=== PATIENT | male | born 1935 | race Caucasian/White ===

== ENCOUNTER 2020-12-04 21:14 | Inpatient (IN) | payer BC, OTHER ==
[~2020-12-04] VITALS: Ht 167.6 cm; Wt 71.6 kg
--- NOTE | 2020-12-05 00:52 | NUR ---
CXR COMPLETED. PT'S FAMILY MEMBER AT BEDSIDE.
[2020-12-05] MEDS ORDERED: normal saline 1000ml 1,000 ML IV ONE (01:00)
[2020-12-05] MEDS ORDERED: metoclopramide 5 mg/ml inj IV ONE (01:00)
[2020-12-05] MEDS: diatr meglu/diatrizoate 30ml oral sol.-(3 dose) bottle PO SCH ×4 (01:00→21:00)
[2020-12-05 01:27] LABS: BASOPHILS % (AUTO) 0.1 % (0-1); EOSINOPHILS % (AUTO) 0.3 % (0-6); HEMATOCRIT 40.4 % (42.0-52.0); HEMOGLOBIN 13.7 g/dl (14.0-17.9); LYMPHOCYTES # (AUTO) 0.5 X10'3 (1.1-4.8); LYMPHOCYTES % (AUTO) 8.3 % (21-51); MEAN CORPUSCULAR HEMOGLOBIN 30.5 PG (27.0-31.0); MEAN CORPUSCULAR HGB CONC 33.8 g/dL (33.0-36.5); MEAN CORPUSCULAR VOLUME 90.1 FL (78-98); MEAN PLATELET VOLUME 8.4 FL (7.4-10.4); MONOCYTES # (AUTO) 0.8 X10'3 (0-0.9); MONOCYTES % (AUTO) 12.6 % (2-12); NEUTROPHILS # (AUTO) 4.9 X10'3 (1.8-7.7); NEUTROPHILS % (AUTO) 78.7 % (42-75); PLATELET COUNT 329 X10'3 (140-440); RED BLOOD COUNT 4.48 X10'6 (4.70-6.10); RED CELL DISTRIBUTION WIDTH 14.3 % (11.5-14.5); WHITE BLOOD COUNT 6.3 X10'3 (4.5-11.0)
[2020-12-05 01:40] LABS: ALANINE AMINOTRANSFERASE 19 U/L (12-78); ALBUMIN 3.2 G/DL (3.4-5.0); ALBUMIN/GLOBULIN RATIO 0.8 (1.1-1.5); ALKALINE PHOSPHATASE 101 IU/L (46-116); ANION GAP 16 (8-16); ASPARTATE AMINO TRANSFERASE 6 U/L (10-37); BILIRUBIN,TOTAL 0.5 MG/DL (0.1-1.0); BLOOD UREA NITROGEN 148 MG/DL (7-18); CALCIUM 8.7 MG/DL (8.5-10.1); CHLORIDE 102 MMOL/L (99-107); CREATININE 6.43 MG/DL (0.60-1.10); GLUCOSE 126 MG/DL (70-104); LIPASE 112 U/L (73-393); MAGNESIUM 2.4 MG/DL (1.5-2.4); SODIUM 138 MMOL/L (135-145); TOTAL PROTEIN 7.4 G/DL (6.4-8.2); eGFR 8 ML/MIN
[2020-12-05 01:45] LABS: D-DIMER 10.31 MG/L FEU (0-0.50); PARTIAL THROMBOPLASTIN TIME 47 SECONDS (22-32)
--- NOTE | 2020-12-05 03:04 | NUR ---
2nd dose of gastrografin given. pt is polite and cooperative and daughter remains at bedside. vss.
[2020-12-05] MEDS ORDERED: normal saline 1000ML IV soln IVB ONE (03:05)
[2020-12-05] MEDS ORDERED: NO HOME MEDS (04:23)
--- NOTE | 2020-12-05 04:31 | NUR ---
Dr. Grider talking with Pt and his daughter about result of CT scan. Daughter reports pt has been havinig generalized weakness with some sob over the past week and Pt has been having a "gag or hiccup" over this time also. Dr. Tafoya at bedside for admission.
[2020-12-05] MEDS ORDERED: acetaminophen 325mg tablet PO PRN (04:55)
[2020-12-05] MEDS ORDERED: potassium Cl 20 mEq SR tablet PO PRN ×2 (04:55)
[2020-12-05] MEDS ORDERED: ondansetron/PF 4mg/2ml inj IV PRN (04:55)
[2020-12-05] MEDS ORDERED: magnesium 2GM in 50ml NS 50 ML IV PRN (04:55)
[2020-12-05] MEDS ORDERED: magnesium 4gm in 100ml NS 100 ML IV PRN (04:55)
[2020-12-05] MEDS ORDERED: potassium Cl 40MEQ/1/2NS 520ml 520 ML IV PRN ×2 (04:55)
[2020-12-05] MEDS ORDERED: morphine 2 MG/ML inj. syringe IV PRN ×2 (04:55)
--- NOTE | 2020-12-05 04:55 | NUR ---
daughter , manuel guillaume, cell: [phone]
--- NOTE | 2020-12-05 06:33 | NUR ---
Page sent to Dr Tafoya for HR [id number]
[2020-12-05] MEDS ORDERED: diltiazem 5mg/ml 5ml inj. IV ONE (06:35)
[2020-12-05] MEDS ORDERED: diltiazem-NS 100mg/100ml 100 ML IV SCH (06:35)
[2020-12-05] MEDS: normal saline 1000ml 1,000 ML IV SCH ×3 (06:53→22:52)
--- NOTE | 2020-12-05 07:30 | NUR ---
PAT HAD LIQUID BM VIA BEDSIDE. ABLE TO TRANSFER WITHOUT ASSISTANCE. HYGIENE PROVIDED, PAT REPOSITIONED FOR COMFORT, LINEN CHANGE PROVIDED.
[2020-12-05] MEDS: docusate sod 100mg capsule PO SCH ×2 (08:00→20:00)
[2020-12-05] MEDS: K and/or MAG REPLACEMENT MC SCH ×2 (08:00→20:00)
[2020-12-05 09:30] VITALS: BP 158/88
[2020-12-05] MEDS: heparin, porcine 5000 units/ml vial SQ SCH ×3 (10:07→23:58)
[2020-12-05 11:00] VITALS: BP 160/90
[2020-12-05] MEDS ORDERED: LIDOcaine 2% 10ml TOPICAL JELLY (Urojet) TP ONE (12:15)
[2020-12-05 15:00] VITALS: BP 134/62
[2020-12-05 18:00] VITALS: BP 143/58
[2020-12-05 22:00] VITALS: BP 118/62
[2020-12-06] MEDS: normal saline 1000ml 1,000 ML IV SCH ×2 (05:32→12:42)
[2020-12-06 06:00] VITALS: BP 138/66
--- NOTE | 2020-12-06 06:10 | NUR ---
Patient in room PCU 3023. I have received report from Meg SINGH and had the opportunity to ask questions and assume patient care.
--- NOTE | 2020-12-06 06:38 | NUR ---
Problems reprioritized. Patient report given, questions answered & plan of care reviewed with FRANCISCO Nunes.
[2020-12-06 07:20] LABS: BASOPHILS % (AUTO) 0.1 % (0-1); EOSINOPHILS % (AUTO) 0.4 % (0-6); HEMATOCRIT 41.7 % (42.0-52.0); HEMOGLOBIN 13.9 g/dl (14.0-17.9); LYMPHOCYTES # (AUTO) 0.7 X10'3 (1.1-4.8); LYMPHOCYTES % (AUTO) 5.5 % (21-51); MEAN CORPUSCULAR HEMOGLOBIN 30.6 PG (27.0-31.0); MEAN CORPUSCULAR HGB CONC 33.3 g/dL (33.0-36.5); MEAN CORPUSCULAR VOLUME 91.7 FL (78-98); MEAN PLATELET VOLUME 8.6 FL (7.4-10.4); MONOCYTES # (AUTO) 0.7 X10'3 (0-0.9); MONOCYTES % (AUTO) 6.2 % (2-12); NEUTROPHILS # (AUTO) 10.5 X10'3 (1.8-7.7); NEUTROPHILS % (AUTO) 87.8 % (42-75); PLATELET COUNT 349 X10'3 (140-440); RED BLOOD COUNT 4.54 X10'6 (4.70-6.10); RED CELL DISTRIBUTION WIDTH 14.5 % (11.5-14.5)
[2020-12-06] MEDS: diatr meglu/diatrizoate 30ml oral sol.-(3 dose) bottle PO SCH ×2 (07:34→21:01)
[2020-12-06 07:40] LABS: ALANINE AMINOTRANSFERASE 15 U/L (12-78); ALBUMIN 2.9 G/DL (3.4-5.0); ALBUMIN/GLOBULIN RATIO 0.8 (1.1-1.5); ALKALINE PHOSPHATASE 96 IU/L (46-116); ANION GAP 17 (8-16); ASPARTATE AMINO TRANSFERASE 6 U/L (10-37); BILIRUBIN,TOTAL 0.4 MG/DL (0.1-1.0); BLOOD UREA NITROGEN 147 MG/DL (7-18); BUN/CREATININE RATIO 29.6 (5.4-32.0); CALCIUM 8.1 MG/DL (8.5-10.1); CHLORIDE 110 MMOL/L (99-107); CREATININE 4.96 MG/DL (0.60-1.10); GLUCOSE 90 MG/DL (70-104); MAGNESIUM 2.1 MG/DL (1.5-2.4); POTASSIUM 3.4 MMOL/L (3.5-5.1); SODIUM 144 MMOL/L (135-145); TOTAL CARBON DIOXIDE 17.1 MMOL/L (24-32); TOTAL PROTEIN 6.7 G/DL (6.4-8.2); eGFR 11 ML/MIN
[2020-12-06] MEDS: docusate sod 100mg capsule PO SCH ×2 (08:00→20:48)
[2020-12-06] MEDS: heparin, porcine 5000 units/ml vial SQ SCH (08:00)
[2020-12-06] MEDS: K and/or MAG REPLACEMENT MC SCH ×2 (08:00→20:00)
[2020-12-06 08:08] LABS: CREATINE KINASE 38 U/L (39-308)
[2020-12-06 11:00] VITALS: BP 133/74
--- NOTE | 2020-12-06 11:11 | NUR ---
PAGER ID: [phone] MESSAGE: RE: Deshawn Holden. Room: 3023A. Pt does not have an order diet. Can I put diet order in? Des [facility] #[id number] -Dr. Vargas paged concerning Pt's diet
--- NOTE | 2020-12-06 13:00 | NUR ---
Spoke with Dr. Rodriguez concerning Pt's morning potassium level of 3.4. He recommends giving a one time dose of 40meq potassium IV to replace potassium.
[2020-12-06 15:00] VITALS: BP 131/70
[2020-12-06] MEDS ORDERED: diltiazem 5mg/ml 5ml inj. IV ONE (15:10)
[2020-12-06 17:47] LABS: CLARITY,URINE CLEAR (Clear); COLOR,URINE YELLOW (Yellow); GLUCOSE, URINE NEGATIVE (Neg); KETONES,URINE TRACE mg/dl (Neg); LEUKOCYTE ESTERASE ,URINE TRACE (Neg); NITRITES, URINE NEGATIVE (Neg); OCCULT BLOOD,URINE LARGE (Neg); PH,URINE 5.5 (4.8-8.0); PROTEIN,URINE TRACE mg/dl (Neg); UROBILINOGEN,URINE 0.2 E.U/dL (0.2-1.0)
[2020-12-06 17:52] LABS: UA COLLECTION TYPE FOLEY CATH
[2020-12-06 17:53] LABS: BACTERIA,URINE NONE SEEN /HPF (Neg); MUCUS STRANDS FEW /LPF (Neg); SQUAMOUS EPITHELIAL CELL,UR NONE SEEN /LPF (FEW); WBC,URINE 0-4 /HPF (0-4)
[2020-12-06 18:00] VITALS: BP 109/70
--- NOTE | 2020-12-06 18:22 | NUR ---
Patient in room PCU 3023. I have received report from FIDENCIO SINGH and had the opportunity to ask questions and assume patient care.
--- NOTE | 2020-12-06 18:40 | NUR ---
Problems reprioritized. Patient report given, questions answered & plan of care reviewed with Martha SINGH.
--- NOTE | 2020-12-06 18:42 | NUR ---
PAGER ID: [phone] MESSAGE: Re: Deshawn Holden. Room: 3023A. Pt's heart rate remains 120's Afib. BP: 120/80. Can we do another dose of Cardizem? -Des [facility] #[id number] -Dr. Vargas paged concerning Pt's heart rate
--- NOTE | 2020-12-06 20:20 | NUR ---
moved patient to 23b bed-patient confused, bed alarm not working. patient up to toilet, had bm, settled back into B bed. Bed alarm on. Hardik SINGH
[2020-12-06] MEDS: enoxaparin 40mg/0.4ml syringe SQ SCH (20:46)
[2020-12-06] MEDS: enoxaparin 30mg/0.3ml syringe SUBCUT SCH (20:47)
[2020-12-06] MEDS ORDERED: enoxaparin 100mg/ml syringe SUBCUT SCH (21:00)
[2020-12-06 22:00] VITALS: BP 149/79
[2020-12-07 02:00] VITALS: BP 122/60
[2020-12-07] MEDS: normal saline 1000ml 1,000 ML IV SCH ×4 (03:04→23:45)
[2020-12-07 03:43] VITALS: BP 122/60
[2020-12-07 06:00] VITALS: BP 140/73
--- NOTE | 2020-12-07 06:05 | NUR ---
Patient in room PCU 3023. I have received report from Martha SINGH and had the opportunity to ask questions and assume patient care.
[2020-12-07 06:55] LABS: BASOPHILS % (AUTO) 0 % (0-1); EOSINOPHILS # (AUTO) 0.1 X10'3 (0-0.9); EOSINOPHILS % (AUTO) 0.9 % (0-6); HEMATOCRIT 36.6 % (42.0-52.0); HEMOGLOBIN 12.2 g/dl (14.0-17.9); LYMPHOCYTES # (AUTO) 0.7 X10'3 (1.1-4.8); LYMPHOCYTES % (AUTO) 5.4 % (21-51); MEAN CORPUSCULAR HEMOGLOBIN 30.8 PG (27.0-31.0); MEAN CORPUSCULAR HGB CONC 33.2 g/dL (33.0-36.5); MEAN CORPUSCULAR VOLUME 92.7 FL (78-98); MEAN PLATELET VOLUME 8.7 FL (7.4-10.4); MONOCYTES # (AUTO) 0.9 X10'3 (0-0.9); NEUTROPHILS # (AUTO) 11.3 X10'3 (1.8-7.7); NEUTROPHILS % (AUTO) 86.7 % (42-75); PLATELET COUNT 285 X10'3 (140-440); RED BLOOD COUNT 3.95 X10'6 (4.70-6.10); RED CELL DISTRIBUTION WIDTH 14.6 % (11.5-14.5)
--- NOTE | 2020-12-07 07:00 | NUR ---
Problems reprioritized. Patient report given, questions answered & plan of care reviewed with FIDENCIO SINGH.
[2020-12-07 07:14] LABS: ALANINE AMINOTRANSFERASE 13 U/L (12-78); ALBUMIN 2.5 G/DL (3.4-5.0); ALBUMIN/GLOBULIN RATIO 0.7 (1.1-1.5); ALKALINE PHOSPHATASE 88 IU/L (46-116); ASPARTATE AMINO TRANSFERASE 9 U/L (10-37); BILIRUBIN,TOTAL 0.3 MG/DL (0.1-1.0); BLOOD UREA NITROGEN 131 MG/DL (7-18); BUN/CREATININE RATIO 33.7 (5.4-32.0); CALCIUM 7.7 MG/DL (8.5-10.1); CREATINE KINASE 34 U/L (39-308); CREATININE 3.89 MG/DL (0.60-1.10); GLUCOSE 84 MG/DL (70-104); SODIUM 147 MMOL/L (135-145); TOTAL CARBON DIOXIDE 15.9 MMOL/L (24-32); TOTAL PROTEIN 5.9 G/DL (6.4-8.2); eGFR 15 ML/MIN
[2020-12-07 07:27] LABS: ANION GAP 16 (8-16); CHLORIDE 115 MMOL/L (99-107)
[2020-12-07] MEDS: K and/or MAG REPLACEMENT MC SCH ×2 (08:00→20:00)
[2020-12-07] MEDS: docusate sod 100mg capsule PO SCH ×2 (08:00→23:13)
[2020-12-07 09:39] LABS: TOTAL PROTEIN,URINE RANDOM 38.5 MG/DL
[2020-12-07 11:00] VITALS: BP 108/75
--- NOTE | 2020-12-07 15:50 | NUR ---
PAGER ID: [phone] MESSAGE: Re: Deshawn Holden. Room: [facility]3B. 12/06 UA is growing gram positive cocci. -Des [facility] #[id number] -Dr. Vargas paged concerning Pt's UA
--- NOTE | 2020-12-07 16:35 | NUR ---
Spoke with Dr. Vargas and Dr. Ogden concerning Pt's UA growing gram positive cocci. Dr. Vargas wanted to order a one time renal dose of Rocephin IV. Spoke to Dr. Ogden who recommended 1gm of Rocephin IV daily for 5 days.
[2020-12-07 18:00] VITALS: BP 127/84
--- NOTE | 2020-12-07 18:45 | NUR ---
Problems reprioritized. Patient report given, questions answered & plan of care reviewed with Blessing SINGH.
--- NOTE | 2020-12-07 18:58 | NUR ---
Patient in room PCU 3023. I have received report from Des SINGH and had the opportunity to ask questions and assume patient care.
[2020-12-07] MEDS: CefTRIAXone/D5W-Rocephin 1gm 50 ML IV SCH (21:00)
[2020-12-07 23:00] VITALS: BP 157/79
[2020-12-07] MEDS: enoxaparin 30mg/0.3ml syringe SUBCUT SCH (23:14)
[2020-12-07] MEDS: enoxaparin 40mg/0.4ml syringe SQ SCH (23:15)
[2020-12-08 03:00] VITALS: BP 142/74
[2020-12-08 06:50] LABS: BASOPHILS % (AUTO) 0.1 % (0-1); EOSINOPHILS # (AUTO) 0.2 X10'3 (0-0.9); EOSINOPHILS % (AUTO) 1.1 % (0-6); HEMATOCRIT 34.9 % (42.0-52.0); HEMOGLOBIN 11.9 g/dl (14.0-17.9); LYMPHOCYTES # (AUTO) 0.7 X10'3 (1.1-4.8); LYMPHOCYTES % (AUTO) 5.5 % (21-51); MEAN CORPUSCULAR HEMOGLOBIN 31.4 PG (27.0-31.0); MEAN CORPUSCULAR HGB CONC 34.2 g/dL (33.0-36.5); MEAN CORPUSCULAR VOLUME 91.8 FL (78-98); MEAN PLATELET VOLUME 8.5 FL (7.4-10.4); MONOCYTES # (AUTO) 0.9 X10'3 (0-0.9); MONOCYTES % (AUTO) 6.3 % (2-12); NEUTROPHILS # (AUTO) 11.8 X10'3 (1.8-7.7); PLATELET COUNT 270 X10'3 (140-440); RED BLOOD COUNT 3.81 X10'6 (4.70-6.10); RED CELL DISTRIBUTION WIDTH 14.3 % (11.5-14.5); WHITE BLOOD COUNT 13.6 X10'3 (4.5-11.0)
[2020-12-08 06:51] LABS: ALANINE AMINOTRANSFERASE 14 U/L (12-78); ALBUMIN 2.3 G/DL (3.4-5.0); ALBUMIN/GLOBULIN RATIO 0.7 (1.1-1.5); ALKALINE PHOSPHATASE 79 IU/L (46-116); ANION GAP 16 (8-16); ASPARTATE AMINO TRANSFERASE 11 U/L (10-37); BILIRUBIN,TOTAL 0.3 MG/DL (0.1-1.0); BLOOD UREA NITROGEN 107 MG/DL (7-18); BUN/CREATININE RATIO 35.2 (5.4-32.0); CALCIUM 7.8 MG/DL (8.5-10.1); CHLORIDE 117 MMOL/L (99-107); CREATINE KINASE 23 U/L (39-308); CREATININE 3.04 MG/DL (0.60-1.10); GLUCOSE 101 MG/DL (70-104); POTASSIUM 3.5 MMOL/L (3.5-5.1); SODIUM 149 MMOL/L (135-145); TOTAL PROTEIN 5.6 G/DL (6.4-8.2); eGFR 20 ML/MIN
[2020-12-08 07:17] VITALS: BP_SYST 14; BP_SYST 141; BP_DIAS 77
--- NOTE | 2020-12-08 07:36 | NUR ---
Problems reprioritized. Patient report given, questions answered & plan of care reviewed with Pat RN.
[2020-12-08] MEDS: K and/or MAG REPLACEMENT MC SCH ×2 (08:00→20:00)
[2020-12-08] MEDS: docusate sod 100mg capsule PO SCH ×2 (08:00→20:00)
[2020-12-08 11:00] VITALS: BP 152/78
[2020-12-08 14:33] LABS: CREATINE KINASE 25 U/L (39-308)
[2020-12-08 18:00] VITALS: BP 155/72
--- NOTE | 2020-12-08 18:20 | NUR ---
Patient in room PCU 3015. I have received report from Nevaeh RN and had the opportunity to ask questions and assume patient care.
[2020-12-08] MEDS: lactobacillus rhamnosus 10,000 MMU CELLS/CAPSULE PO SCH (20:00)
[2020-12-08] MEDS: CefTRIAXone/D5W-Rocephin 1gm 50 ML IV SCH (20:04)
[2020-12-08] MEDS: normal saline 1000ml 1,000 ML IV SCH (20:05)
[2020-12-08] MEDS: enoxaparin 40mg/0.4ml syringe SQ SCH (20:05)
[2020-12-08] MEDS: enoxaparin 30mg/0.3ml syringe SUBCUT SCH (20:05)
[2020-12-08] MEDS ORDERED: diatr meglu/diatrizoate 30ml oral sol.-(3 dose) bottle PO SCH (21:00)
[2020-12-08] MEDS ORDERED: diatr meglu/diatrizoate 30ml oral sol.-(3 dose) bottle PO ONE (21:00)
[2020-12-09] MEDS: normal saline 1000ml 1,000 ML IV SCH ×3 (00:14→21:06)
[2020-12-09 02:00] VITALS: BP 147/79
[2020-12-09 06:00] VITALS: BP 166/85
--- NOTE | 2020-12-09 06:20 | NUR ---
Problems reprioritized. Patient report given, questions answered & plan of care reviewed with Neal SINGH.
[2020-12-09] MEDS ORDERED: diatr meglu/diatrizoate 30ml oral sol.-(3 dose) bottle PO ONE ×2 (07:00→09:00)
[2020-12-09 07:21] LABS: BASOPHILS % (AUTO) 0.1 % (0-1); EOSINOPHILS # (AUTO) 0.2 X10'3 (0-0.9); EOSINOPHILS % (AUTO) 1.1 % (0-6); HEMATOCRIT 34.5 % (42.0-52.0); HEMOGLOBIN 11.4 g/dl (14.0-17.9); LYMPHOCYTES # (AUTO) 0.8 X10'3 (1.1-4.8); LYMPHOCYTES % (AUTO) 5.5 % (21-51); MEAN CORPUSCULAR HEMOGLOBIN 30.6 PG (27.0-31.0); MEAN CORPUSCULAR VOLUME 92.8 FL (78-98); MEAN PLATELET VOLUME 8.9 FL (7.4-10.4); MONOCYTES # (AUTO) 1.1 X10'3 (0-0.9); MONOCYTES % (AUTO) 7.2 % (2-12); NEUTROPHILS # (AUTO) 12.6 X10'3 (1.8-7.7); NEUTROPHILS % (AUTO) 86.1 % (42-75); PLATELET COUNT 242 X10'3 (140-440); RED BLOOD COUNT 3.72 X10'6 (4.70-6.10); RED CELL DISTRIBUTION WIDTH 14.4 % (11.5-14.5); WHITE BLOOD COUNT 14.7 X10'3 (4.5-11.0)
[2020-12-09 07:32] LABS: ALANINE AMINOTRANSFERASE 14 U/L (12-78); ALBUMIN 2.3 G/DL (3.4-5.0); ALBUMIN/GLOBULIN RATIO 0.7 (1.1-1.5); ALKALINE PHOSPHATASE 90 IU/L (46-116); ANION GAP 13 (8-16); ASPARTATE AMINO TRANSFERASE 11 U/L (10-37); BILIRUBIN,TOTAL 0.3 MG/DL (0.1-1.0); BLOOD UREA NITROGEN 78 MG/DL (7-18); BUN/CREATININE RATIO 28.5 (5.4-32.0); CALCIUM 7.7 MG/DL (8.5-10.1); CHLORIDE 119 MMOL/L (99-107); CREATINE KINASE 22 U/L (39-308); CREATININE 2.74 MG/DL (0.60-1.10); GLUCOSE 114 MG/DL (70-104); MAGNESIUM 1.9 MG/DL (1.5-2.4); POTASSIUM 3.5 MMOL/L (3.5-5.1); SODIUM 148 MMOL/L (135-145); TOTAL CARBON DIOXIDE 15.8 MMOL/L (24-32); TOTAL PROTEIN 5.5 G/DL (6.4-8.2); eGFR 22 ML/MIN
[2020-12-09] MEDS: K and/or MAG REPLACEMENT MC SCH ×2 (08:00→20:00)
[2020-12-09] MEDS: lactobacillus rhamnosus 10,000 MMU CELLS/CAPSULE PO SCH ×2 (08:00→20:00)
[2020-12-09] MEDS: docusate sod 100mg capsule PO SCH ×2 (08:00→20:00)
[2020-12-09 11:00] VITALS: BP 141/80
--- NOTE | 2020-12-09 11:18 | NUR ---
Dr. Vargas paged: Deshawn Russell [id number]: [facility] would like you to call them. [phone] Dr. Patel. Thanks [id number]
[2020-12-09 12:31] LABS: ANTINUCLEAR ANTIBODIES Negative (Negative); COMPLEMENT C3, SERUM 115 mg/dL (82-167); COMPLEMENT C4, SERUM 20 mg/dL (12-38)
--- NOTE | 2020-12-09 13:58 | NUR ---
NG tube placed per order. Xray confirmed proper placement. Suction set to low continuous. Pt gio. well.
[2020-12-09 15:00] VITALS: BP 150/85
[2020-12-09 18:00] VITALS: BP 148/86
[2020-12-09 18:58] LABS: A/G RATIO 0.9 (0.7-1.7); ALBUMIN 2.5 g/dL (2.9-4.4); BETA GLOBULIN 0.7 g/dL (0.7-1.3); GAMMA GLOBULIN 1.1 g/dL (0.4-1.8); GLOBULIN, TOTAL 2.9 g/dL (2.2-3.9); M-SPIKE Not Observed g/dL (Not Observed); PROTEIN, TOTAL, SERUM 5.4 g/dL (6.0-8.5)
--- NOTE | 2020-12-09 19:00 | NUR ---
Problems reprioritized. Patient report given, questions answered & plan of care reviewed with Nella SINGH.
[2020-12-09] MEDS: CefTRIAXone/D5W-Rocephin 1gm 50 ML IV SCH (20:46)
[2020-12-09] MEDS: enoxaparin 40mg/0.4ml syringe SQ SCH (20:57)
[2020-12-09] MEDS: enoxaparin 30mg/0.3ml syringe SUBCUT SCH (20:58)
[2020-12-09 22:00] VITALS: BP 139/84
[2020-12-10] VITALS (13 sets, daily range): BP systolic 116–180; BP diastolic 56–99
--- NOTE | 2020-12-10 02:12 | NUR ---
NOTIFIED MESSAGE: [id number] Deshawn Holden pulled NG out attempted to replace multiple times, so did the appeals coordinator. PT cussing at staff and refusing to have the NG placed back in regardless of how many attempts to educate. Pt more lucid in am. Nella [phone]
[2020-12-10 06:14] LABS: BASOPHILS % (AUTO) 0 % (0-1); EOSINOPHILS # (AUTO) 0.2 X10'3 (0-0.9); EOSINOPHILS % (AUTO) 1.3 % (0-6); HEMOGLOBIN 11.6 g/dl (14.0-17.9); LYMPHOCYTES # (AUTO) 1.1 X10'3 (1.1-4.8); MEAN CORPUSCULAR HEMOGLOBIN 30.3 PG (27.0-31.0); MEAN CORPUSCULAR VOLUME 91.8 FL (78-98); MEAN PLATELET VOLUME 8.5 FL (7.4-10.4); MONOCYTES # (AUTO) 1.1 X10'3 (0-0.9); MONOCYTES % (AUTO) 7.3 % (2-12); NEUTROPHILS # (AUTO) 12.8 X10'3 (1.8-7.7); NEUTROPHILS % (AUTO) 84.4 % (42-75); PLATELET COUNT 243 X10'3 (140-440); RED BLOOD COUNT 3.82 X10'6 (4.70-6.10); RED CELL DISTRIBUTION WIDTH 14.4 % (11.5-14.5); WHITE BLOOD COUNT 15.2 X10'3 (4.5-11.0)
[2020-12-10 06:17] LABS: ALANINE AMINOTRANSFERASE 23 U/L (12-78); ALBUMIN 2.1 G/DL (3.4-5.0); ALBUMIN/GLOBULIN RATIO 0.6 (1.1-1.5); ALKALINE PHOSPHATASE 91 IU/L (46-116); ANION GAP 15 (8-16); ASPARTATE AMINO TRANSFERASE 16 U/L (10-37); BILIRUBIN,TOTAL 0.3 MG/DL (0.1-1.0); BLOOD UREA NITROGEN 65 MG/DL (7-18); BUN/CREATININE RATIO 25.9 (5.4-32.0); CALCIUM 7.9 MG/DL (8.5-10.1); CHLORIDE 119 MMOL/L (99-107); CREATINE KINASE 23 U/L (39-308); CREATININE 2.51 MG/DL (0.60-1.10); GLUCOSE 100 MG/DL (70-104); MAGNESIUM 1.8 MG/DL (1.5-2.4); POTASSIUM 3.3 MMOL/L (3.5-5.1); SODIUM 152 MMOL/L (135-145); TOTAL CARBON DIOXIDE 18.1 MMOL/L (24-32); TOTAL PROTEIN 5.6 G/DL (6.4-8.2); eGFR 25 ML/MIN
--- NOTE | 2020-12-10 06:39 | NUR ---
Problems reprioritized. Patient report given, questions answered & plan of care reviewed with Katy SINGH.
--- NOTE | 2020-12-10 06:49 | NUR ---
Patient in room PCU 3014K. I have received report from FRANCISCO Carmen and had the opportunity to ask questions and assume patient care.
[2020-12-10] MEDS: docusate sod 100mg capsule PO SCH ×2 (07:12→20:00)
[2020-12-10] MEDS: lactobacillus rhamnosus 10,000 MMU CELLS/CAPSULE PO SCH ×2 (07:12→20:00)
[2020-12-10] MEDS: K and/or MAG REPLACEMENT MC SCH ×2 (08:00→20:00)
--- NOTE | 2020-12-10 11:02 | NUR ---
Page Sent PAGER ID: [phone] MESSAGE: ANA LUISA 1430-RE: MARQUITA GONCALVES [id number]...PT PULLED OUT NG TUBE LAST NIGHT AND IS REFUSING RE-REPLACEMENT, NEW ORDERS?
--- NOTE | 2020-12-10 12:08 | NUR ---
Initial: Pt admitted w/ increasing weakness over ~ 1 week and abd pain, CT scan 12/05 showed small bowel obstruction. Pt has been on clear liquids since 12/06 w/ avg intake 55% x 5 meals per documentation. Pt had NGT placed 12/09 for low continuous suction, though pt pulled it out and stated he did not want it per nursing note. Pt NPO today. RUBEN d/w RN and there is currently no plan for diet advancement, awaiting MD orders. Limited nutritional interventions at this time, will continue to monitor. Recs: 1. Advance to Regular diet as medically appropriate 2. Bowel care per rx 3. Weekly wts Addendum: 12/10/20 at [address] Amended: Links added.
[2020-12-10] MEDS: dextrose 5%-water 1,000 ML IV SCH ×2 (12:18→20:05)
--- NOTE | 2020-12-10 14:15 | NUR ---
Page Sent PAGER ID: [phone] MESSAGE: ANA LUISA 5428-RE: MARQUITA GONCALVES 3015A...POTASSIUM 3.3...NO REPLACEMENT PROTOCOL ORDERS
[2020-12-10 15:48] LABS: ALBUMIN, UR 24.1 % (.); ALPHA-1-GLOBULIN,UR 3.7 % (.); ALPHA-2-GLOBULIN,UR 24.1 % (.); BETA GLOBULIN, UR 16.1 % (.); PROTEIN,TOTAL,URINE 16.1 mg/dL (Not Estab.)
--- NOTE | 2020-12-10 16:00 | NUR ---
AFTER TRYING TO GET PT TO AGREE TO NG PLACEMENT. PT FINALLY AGREED, NG PLACED, NO COMPLICATIONS, PT TOLERATED PROCEDURE WELL. LOW CONTINUOUS SUCTION PER MD ORDER.
[2020-12-10] MEDS ORDERED: BUPIVAcaine 0.5% inj/PF 30 ML ONE (18:24)
[2020-12-10] MEDS ORDERED: LIDOcaine 1% 30ml preserv. free vial ONE (18:24)
--- NOTE | 2020-12-10 18:30 | NUR ---
Patient in room PCU 3015. I have received report from krysta richard and had the opportunity to ask questions and assume patient care.
--- NOTE | 2020-12-10 18:39 | NUR ---
Problems reprioritized. Patient report given, questions answered & plan of care reviewed with FRANCISCO FONSECA.
--- NOTE | 2020-12-10 19:45 | NUR ---
called report to OR/ steam gigger Janell. OR team are enroute to pick pt up for sx. Will resume care of pt when returned to unit post surgery.
[2020-12-10] MEDS ORDERED: HYDROmorphone/PF 0.2 MG/ML SYRINGE IV PRN ×2 (21:00)
[2020-12-10] MEDS ORDERED: ondansetron/PF 4mg/2ml inj IV PRN (21:00)
[2020-12-10] MEDS ORDERED: morphine 2 MG/ML inj. syringe IV PRN (21:00)
[2020-12-10] MEDS ORDERED: ringers solution, lacted 1,000 ML IV SCH (21:00)
[2020-12-10] MEDS ORDERED: fentaNYL/PF 50MCG/1 ML 2ML syringe ONE ×2 (21:02→22:23)
[2020-12-10] MEDS ORDERED: cefazolin/dext.iso 2gm/100ml BAG IV ONE (21:04)
[2020-12-10] MEDS ORDERED: sevoflurane 250ml liquid IH ONE (21:04)
[2020-12-10] MEDS ORDERED: ondansetron/PF 4mg/2ml inj ONE ×2 (21:04→22:06)
[2020-12-10] MEDS ORDERED: BUPIVAcaine/PF 2.5mg/ml (0.25%) 10ml vial ONE (21:49)
[2020-12-10] MEDS ORDERED: BUPIVACAINE liposomal/PF 13.3 MG/ML vial IM ONE (21:49)
[2020-12-10] MEDS ORDERED: LIDOcaine 2% (20mg/ml) 5ml vial ONE (22:06)
[2020-12-10] MEDS ORDERED: rocuronium 10mg/ml inj IV ONE (22:06)
[2020-12-10] MEDS ORDERED: etomidate 2mg/ml inj. ONE (22:06)
[2020-12-10] MEDS ORDERED: sugammadex 200mg/2ml injection IV ONE (22:23)
--- NOTE | 2020-12-10 22:29 | NUR ---
Received from OR via BED , accompanied by Anesthesiologist FERNY and report given by Anesthesiolgist. PT. ARRIVED IN PACU, WITH FC DRAINING TO GRAVITY, LIGHT CLOUDY URINE NOTED 30 ML. IV IN L. WRIST 20 G. LR AT 100 ML/HR. CDI. NG ON LOW CONTINUOUS AT NOSE TAPED. DARK BROWN DRAINAGE NOTED IN TUBING. VSS. WOUND VAC IN PLACE 125 mmHG, MIDLINE INCISION WITH BLACK FOAM AND TEGADERM, NO DRAINAGE NOTED. MOVES ALL EXTREMITIES, PT. ACTIVE UPON ARRIVAL. ARRIVED ON 6L O2 VIA MASK. PT. REMOVED MASK AND REPOSITIONED SELF ON SIDE. ALLOWED FOR COMFORT. SIDE RAILS X 2. Addendum: 12/10/20 at 2306 by Leigh Portillo RN Amended: Links added.
--- NOTE | 2020-12-10 23:06 | NUR ---
PT. RESTNG COMFORTABLY ON LEFT SIDE. ASKED TO BE COVERED UP. PT. HAD REMOVED GOWN. PT. RESPONDING TO QUESTIONS AND COOPERATIVE WITH CARE. Addendum: 12/10/20 at 2312 by Leigh Portillo RN Amended: Links added.
--- NOTE | 2020-12-10 23:25 | NUR ---
recieved report from OR, will assume care once pt arrives to unit
--- NOTE | 2020-12-10 23:29 | NUR ---
REPORT CALLED TO RAYMUNDO. PT. TRANSFERRED BACK TO ROOM. VSS. ON ROOM AIR. TELEBOX IN PLACE AND FUNCTIONING. FC DRAINING TO GRVITY, WOUND VAC 125MMHG INTACT AND FUNCTIONING. NG TUBE IN PLACE TO LOW CONTINUOUS. IV L. WRIST CDI WITH LR AT 100 ML/HR. SIDERAILS X 2 BED LOW. NURSE AND 3 OTHER STAFF PRESENT TO ASSIST. PT. REPORTED SOME DISCOMFORT AT ABDOMEN UPON ARRIVAL TO PCU. RN AWARE. ALL QUESTIONS ANSWERED. FAMILY AWARE OF TRANSFER. Addendum: 12/10/20 at 2334 by Leigh Portillo RN Amended: Links added.
[2020-12-10] MEDS: HYDROmorphone inj. 0.5 MG/0.5 ML DISP.SYRIN IV PRN (23:42)
[2020-12-10] MEDS: CefTRIAXone/D5W-Rocephin 1gm 50 ML IV SCH (23:51)
[2020-12-11] VITALS (13 sets, daily range): BP systolic 86–127; BP diastolic 55–72
--- NOTE | 2020-12-11 | NUR ---
Pt back from Surgery, tele monitor on pt and working, VSS, fc to gravity, pt alert and talking, c/o of pain, pain RX administered per MD orders, post op vitals started. NG to LC suction. Midline sternal incision with wound vac @ 125mmHg. Sitter at bedside. Will continue to monitor patient.
[2020-12-11] MEDS: HYDROmorphone inj. 0.5 MG/0.5 ML DISP.SYRIN IV PRN ×3 (04:29→20:07)
--- NOTE | 2020-12-11 06:24 | NUR ---
Problems reprioritized. Patient report given, questions answered & plan of care reviewed with Trinidad SINGH.
--- NOTE | 2020-12-11 06:40 | NUR ---
Patient in room PCU 3015. I have received report from rich SINGH and had the opportunity to ask questions and assume patient care.
[2020-12-11] MEDS: lactobacillus rhamnosus 10,000 MMU CELLS/CAPSULE PO SCH ×2 (08:00→20:00)
[2020-12-11] MEDS: docusate sod 100mg capsule PO SCH ×2 (08:00→20:00)
[2020-12-11] MEDS ORDERED: enoxaparin 40mg/0.4ml syringe SQ SCH (08:00)
[2020-12-11] MEDS: K and/or MAG REPLACEMENT MC SCH ×2 (08:00→20:00)
[2020-12-11] MEDS: dextrose 5%-water 1,000 ML IV SCH ×2 (12:05→23:30)
--- NOTE | 2020-12-11 15:59 | NUR ---
noted patients urine out put only 100mls. page sent out to Dr Vargas.
--- NOTE | 2020-12-11 16:49 | NUR ---
catheter ballon delated and reinflated still minimal urine out put. Dr pretty re-paged x2 no response as yet
[2020-12-11] MEDS ORDERED: normal saline 1000ml 1,000 ML IV SCH (16:55)
--- NOTE | 2020-12-11 17:52 | NUR ---
DR pretty paged orders given to change D5W to Nacl@80mls/hr/ Labs drawn and urine sodium sent off. 175 mls greenish drainage from NG tube. patient awake orientated to self . daughter present.
[2020-12-11 17:54] LABS: BASOPHILS % (AUTO) 0 % (0-1); EOSINOPHILS % (AUTO) 0 % (0-6); HEMATOCRIT 38.6 % (42.0-52.0); HEMOGLOBIN 12.5 g/dl (14.0-17.9); LYMPHOCYTES # (AUTO) 0.7 X10'3 (1.1-4.8); LYMPHOCYTES % (AUTO) 3.6 % (21-51); MEAN CORPUSCULAR HEMOGLOBIN 30.1 PG (27.0-31.0); MEAN CORPUSCULAR HGB CONC 32.5 g/dL (33.0-36.5); MEAN CORPUSCULAR VOLUME 92.6 FL (78-98); MONOCYTES # (AUTO) 0.9 X10'3 (0-0.9); MONOCYTES % (AUTO) 4.6 % (2-12); NEUTROPHILS # (AUTO) 18.7 X10'3 (1.8-7.7); NEUTROPHILS % (AUTO) 91.8 % (42-75); PLATELET COUNT 219 X10'3 (140-440); RED BLOOD COUNT 4.17 X10'6 (4.70-6.10); RED CELL DISTRIBUTION WIDTH 14.6 % (11.5-14.5); WHITE BLOOD COUNT 20.4 X10'3 (4.5-11.0)
[2020-12-11 18:02] LABS: ANION GAP 13 (8-16); BLOOD UREA NITROGEN 72 MG/DL (7-18); CALCIUM 7.8 MG/DL (8.5-10.1); CHLORIDE 117 MMOL/L (99-107); CREATININE 3.99 MG/DL (0.60-1.10); GLUCOSE 157 MG/DL (70-104); POTASSIUM 3.6 MMOL/L (3.5-5.1); SODIUM 154 MMOL/L (135-145); TOTAL CARBON DIOXIDE 23.7 MMOL/L (24-32); eGFR 14 ML/MIN
--- NOTE | 2020-12-11 18:26 | NUR ---
Problems reprioritized. Patient report given, questions answered & plan of care reviewed with rich SINGH.
--- NOTE | 2020-12-11 18:30 | NUR ---
Patient in room PCU 3015. I have received report from Trinidad SINGH and had the opportunity to ask questions and assume patient care.
--- NOTE | 2020-12-11 20:00 | NUR ---
Day RN paged at end of her shift to notify MD of current labs drawn from the 1700 hour. No call back so I called noc with current lab values received orders for D5W @100ml/hr, and a 500ml bolus of NS ofr BP systolic of 99. ordered stat phos and CMET in am. Notified MD of phos level of 5.2. No new orders received at that time r/t to phos lab. is aware that urine out put is low 20ml/hr. New orders inputted by MD Vargas after speaking with Dr Carbajal. Dr. Vargas ordered D5W @80/ml/hr and Zosyn 3.375 Q12 IV. Medication initiated and administered per orders. Will continue to monitor pt.
[2020-12-11] MEDS ORDERED: dextrose 5%-water 1,000 ML IV SCH (20:25)
[2020-12-12] MEDS ORDERED: piperacillin/tazo 3.375gm/50ml 50 ML IV SCH
[2020-12-12] MEDS: piperacillin/tazo 3.375gm/50ml 50 ML IV SCH ×2 (00:15→12:00)
[2020-12-12 02:00] VITALS: BP 115/72
[2020-12-12] MEDS: HYDROmorphone inj. 0.5 MG/0.5 ML DISP.SYRIN IV PRN ×4 (02:51→21:31)
[2020-12-12 06:00] VITALS: BP 97/56
--- NOTE | 2020-12-12 06:30 | NUR ---
Patient in room PCU 3015. I have received report from FRANCISCO Nuñez and had the opportunity to ask questions and assume patient care.
--- NOTE | 2020-12-12 06:49 | NUR ---
Problems reprioritized. Patient report given, questions answered & plan of care reviewed with Aracely SINGH.
[2020-12-12] MEDS ORDERED: docusate sodium 100mg/10ml UD cup PO SCH (07:47)
[2020-12-12] MEDS: K and/or MAG REPLACEMENT MC SCH ×3 (08:00→20:00)
[2020-12-12] MEDS: lactobacillus rhamnosus 10,000 MMU CELLS/CAPSULE NG SCH ×2 (08:06→21:31)
[2020-12-12] MEDS: docusate sodium 100mg/10ml UD cup NG SCH ×3 (08:06→21:31)
[2020-12-12] MEDS: enoxaparin 30mg/0.3ml syringe SQ SCH (08:07)
[2020-12-12] MEDS: dextrose 5%-water 1,000 ML IV SCH (08:59)
[2020-12-12 10:23] LABS: ALANINE AMINOTRANSFERASE 14 U/L (12-78); ALBUMIN 1.8 G/DL (3.4-5.0); ALBUMIN/GLOBULIN RATIO 0.5 (1.1-1.5); ALKALINE PHOSPHATASE 79 IU/L (46-116); ANION GAP 10 (8-16); ASPARTATE AMINO TRANSFERASE 17 U/L (10-37); BILIRUBIN,TOTAL 0.3 MG/DL (0.1-1.0); BLOOD UREA NITROGEN 82 MG/DL (7-18); BUN/CREATININE RATIO 17.6 (5.4-32.0); CALCIUM 7.6 MG/DL (8.5-10.1); CHLORIDE 115 MMOL/L (99-107); CREATININE 4.65 MG/DL (0.60-1.10); GLUCOSE 144 MG/DL (70-104); MAGNESIUM 1.9 MG/DL (1.5-2.4); POTASSIUM 3.2 MMOL/L (3.5-5.1); SODIUM 149 MMOL/L (135-145); TOTAL CARBON DIOXIDE 24.3 MMOL/L (24-32); TOTAL PROTEIN 5.1 G/DL (6.4-8.2); eGFR 12 ML/MIN
[2020-12-12 11:00] VITALS: BP 110/61
[2020-12-12] MEDS ORDERED: magnesium 4gm in 100ml NS 100 ML IV PRN (11:50)
[2020-12-12] MEDS ORDERED: potassium Cl 40MEQ/1/2NS 520ml 520 ML IV PRN (11:50)
[2020-12-12] MEDS ORDERED: magnesium Cl slow-release 64mg tablet PO PRN (11:50)
[2020-12-12] MEDS ORDERED: potassium Cl 20 mEq SR tablet PO PRN ×2 (11:50)
[2020-12-12] MEDS ORDERED: POTASSIUM BICARB 20meq eff tab 20 MEQ TABLET.EFF PO PRN (11:55)
[2020-12-12] MEDS: POTASSIUM BICARB 20meq eff tab 20 MEQ TABLET.EFF PO PRN (13:12)
--- NOTE | 2020-12-12 15:15 | NUR ---
Per Melvi: do not switch patients IVF, keep NS @150 per Grant: NO MEDS in NG, IV only
[2020-12-12] MEDS: normal saline 1000ml 1,000 ML IV SCH ×2 (15:57→18:55)
[2020-12-12 18:00] VITALS: BP 117/69
--- NOTE | 2020-12-12 18:42 | NUR ---
Problems reprioritized. Patient report given, questions answered & plan of care reviewed with FRANCISCO Thomas.
[2020-12-12 22:00] VITALS: BP 139/81
--- NOTE | 2020-12-12 23:10 | NUR ---
patient pulled ng tube out despite sitter at bedside. MD viera notified, new orders for ativan 1 mg q2 prn agitation, restraints and reinsertion of NG tube ordered. radha SINGH
[2020-12-13] MEDS: piperacillin/tazo 3.375gm/50ml 50 ML IV SCH ×2 (00:15→12:41)
[2020-12-13] MEDS: LORazepam 2 mg/ml vial IV PRN (00:15)
[2020-12-13] MEDS: dextrose 5%-water 1,000 ML IV SCH (00:30)
--- NOTE | 2020-12-13 01:00 | NUR ---
able to reinsert ng tube, patient remains in restraints for safety. radha richard
[2020-12-13 02:00] VITALS: BP 141/81
[2020-12-13] MEDS: normal saline 1000ml 1,000 ML IV SCH ×3 (04:35→21:03)
[2020-12-13 06:00] VITALS: BP 127/88
--- NOTE | 2020-12-13 06:13 | NUR ---
Patient in room PCU 3015. I have received report from Martha and had the opportunity to ask questions and assume patient care.
[2020-12-13 06:53] LABS: BASOPHILS % (AUTO) 0.2 % (0-1); EOSINOPHILS # (AUTO) 0.1 X10'3 (0-0.9); EOSINOPHILS % (AUTO) 0.4 % (0-6); HEMATOCRIT 33.2 % (42.0-52.0); HEMOGLOBIN 10.7 g/dl (14.0-17.9); LYMPHOCYTES # (AUTO) 0.7 X10'3 (1.1-4.8); LYMPHOCYTES % (AUTO) 3.5 % (21-51); MEAN CORPUSCULAR HEMOGLOBIN 29.7 PG (27.0-31.0); MEAN CORPUSCULAR HGB CONC 32.4 g/dL (33.0-36.5); MEAN CORPUSCULAR VOLUME 91.7 FL (78-98); MEAN PLATELET VOLUME 9.2 FL (7.4-10.4); MONOCYTES # (AUTO) 0.8 X10'3 (0-0.9); NEUTROPHILS # (AUTO) 18.4 X10'3 (1.8-7.7); NEUTROPHILS % (AUTO) 91.9 % (42-75); PLATELET COUNT 235 X10'3 (140-440); RED BLOOD COUNT 3.62 X10'6 (4.70-6.10); RED CELL DISTRIBUTION WIDTH 14.7 % (11.5-14.5); WHITE BLOOD COUNT 20.1 X10'3 (4.5-11.0)
[2020-12-13 07:10] LABS: ALBUMIN 1.8 G/DL (3.4-5.0); ANION GAP 14 (8-16); BLOOD UREA NITROGEN 87 MG/DL (7-18); BUN/CREATININE RATIO 16.7 (5.4-32.0); CALCIUM 7.5 MG/DL (8.5-10.1); CHLORIDE 116 MMOL/L (99-107); GLUCOSE 99 MG/DL (70-104); MAGNESIUM 1.9 MG/DL (1.5-2.4); POTASSIUM 3.1 MMOL/L (3.5-5.1); SODIUM 152 MMOL/L (135-145); eGFR 11 ML/MIN
[2020-12-13] MEDS: lactobacillus rhamnosus 10,000 MMU CELLS/CAPSULE NG SCH ×2 (07:49→20:00)
[2020-12-13] MEDS: docusate sodium 100mg/10ml UD cup NG SCH ×2 (07:49→20:00)
[2020-12-13] MEDS: enoxaparin 30mg/0.3ml syringe SQ SCH (07:50)
[2020-12-13] MEDS: POTASSIUM BICARB 20meq eff tab 20 MEQ TABLET.EFF PO PRN ×2 (07:50→12:37)
[2020-12-13] MEDS: K and/or MAG REPLACEMENT MC SCH ×3 (07:51→20:00)
--- NOTE | 2020-12-13 08:56 | NUR ---
PAGER ID: [phone] MESSAGE: RE: [facility] Rm 15A Navin. Pt Sodium 152 today. He is getting NS@125 right now can we adjust his IVF? Thank you.
[2020-12-13] MEDS ORDERED: dextrose 5%-water 1,000 ML IV SCH (09:20)
--- NOTE | 2020-12-13 09:54 | NUR ---
PAGER ID: [phone] MESSAGE: RE: PCU 15A Deshawn. He has not eaten for 9 days. Pump Mechanic is asking if you want TPN to be started? Thanks.
[2020-12-13 11:00] VITALS: BP 147/88
--- NOTE | 2020-12-13 11:36 | NUR ---
PICC line indicated for TPN per Dr Chiang RBTO placed Addendum: 12/13/20 at 1137 by Ander Sinclair RN PICC line indicated for TPN per Dr Behl. DE LA GARZA placed. PICC line RN made aware. Daughter at bedside consents to the procedure.
--- NOTE | 2020-12-13 11:44 | NUR ---
TPN consult: Pt s/p exploratory laparotomy, abscess drainage, small bowel resection, and wound VAC placement 12/10. PO diet has been advanced to ice chips/sips/and popsicles post-op. Per embedded firmware engineer NG tube was replaced, documented with 800 mL output today so far. Pt now day 9 with insufficient PO intake r/t to diet order. LBM 12/10, no return of bowel function yet per MD note. D/w RN recommendation for TPN, which was d/w MD by RN. Noted pt currently does not have a PICC in place. Will place TPN recommendations below for once PICC/central access is achieved. Recommendations have been d/w clinical pharmacist. Noted pt currently receiving D5 at 100 mL/hr providing 408 kcal/day. Recommend discontinuing D5 with initiation of TPN. Will continue to follow closely. Recommendations: 1) Once PICC/central access is achieved, continuous 2:1 Clinimix non-E 08/24 with goal rate of 80 mL/hr with additional 250 mL 20% intralipids to run at 20.833 mL/hr for 12 hours/day. In total to provide 2170 mL total volume/day, 1863 kcal, 96 g AA, 288 g dextrose (2.89 mg/kg/min dext load), and 50 g lipids 2) Prealbumin and TG q Wednesday/ 3) Daily scaled weights 4) PO diet advancement to low fiber/low residue as medically indicated 5) Bowel care per rx Addendum: 12/13/20 at [address] Amended: Links added.
--- NOTE | 2020-12-13 13:39 | NUR ---
Per Dr Ogden. Keep patient IVF NS @150 and d/c D5W@100 at this time.
[2020-12-13 15:00] VITALS: BP 166/84
[2020-12-13] MEDS ORDERED: Dextrose 10%-water IV solution 1,000 ML IV PRN (15:25)
[2020-12-13 16:13] LABS: PHOSPHORUS 5.1 MG/DL (2.3-4.5); PREALBUMIN 10.4 MG/DL (19-36); TRIGLYCERIDES 86 MG/DL (20-135)
[2020-12-13] MEDS: HYDROmorphone inj. 0.5 MG/0.5 ML DISP.SYRIN IV PRN (17:59)
[2020-12-13 18:00] VITALS: BP 142/80
--- NOTE | 2020-12-13 18:00 | NUR ---
Patient in room PCU 3015. I have received report from ANDREZ SINGH and had the opportunity to ask questions and assume patient care.
--- NOTE | 2020-12-13 18:30 | NUR ---
Problems reprioritized. Patient report given, questions answered & plan of care reviewed with Martha SINGH. Zainab bat lathe operator at bedside to change wound vac.
[2020-12-13] MEDS ORDERED: [UNRECOGNIZED DRUG - OTHER] IV SCH (20:00)
[2020-12-13] MEDS ORDERED: ZINC/COPPER/MANGANESE/SELENIUM 0.5 ML, chromic chloride inj. 5 MCG in AA 5%/cal/electro... IV SCH (20:00)
[2020-12-13] MEDS ORDERED: ZINC IV SCH ×2 (20:00)
[2020-12-13] MEDS ORDERED: MANGANESE IV SCH ×2 (20:00)
[2020-12-13] MEDS ORDERED: COPPER IV SCH ×2 (20:00)
[2020-12-13] MEDS ORDERED: fat emulsion IV bag 250 ML IV SCH (20:00)
[2020-12-13] MEDS ORDERED: [UNRECOGNIZED DRUG - OTHER] IV SCH (20:00)
[2020-12-13] MEDS ORDERED: CHROMIC CHLORIDE IV SCH ×2 (20:00)
[2020-12-13] MEDS ORDERED: SELENIUM IV SCH ×2 (20:00)
[2020-12-13 22:00] VITALS: BP 150/77
[2020-12-14] MEDS: piperacillin/tazo 3.375gm/50ml 50 ML IV SCH ×3 (00:22→23:28)
[2020-12-14] MEDS: HYDROmorphone inj. 0.5 MG/0.5 ML DISP.SYRIN IV PRN (01:50)
[2020-12-14 02:00] VITALS: BP 139/73
[2020-12-14] MEDS: normal saline 1000ml 1,000 ML IV SCH ×2 (03:00→07:34)
[2020-12-14 05:12] LABS: BASOPHILS # (AUTO) 0.1 X10'3 (0-0.2); BASOPHILS % (AUTO) 0.5 % (0-1); EOSINOPHILS # (AUTO) 0.3 X10'3 (0-0.9); EOSINOPHILS % (AUTO) 1.7 % (0-6); HEMOGLOBIN 9.2 g/dl (14.0-17.9); LYMPHOCYTES # (AUTO) 0.6 X10'3 (1.1-4.8); LYMPHOCYTES % (AUTO) 3.7 % (21-51); MEAN CORPUSCULAR HEMOGLOBIN 29.7 PG (27.0-31.0); MEAN CORPUSCULAR HGB CONC 32.8 g/dL (33.0-36.5); MEAN CORPUSCULAR VOLUME 90.7 FL (78-98); MEAN PLATELET VOLUME 9.3 FL (7.4-10.4); MONOCYTES # (AUTO) 0.8 X10'3 (0-0.9); MONOCYTES % (AUTO) 5.5 % (2-12); NEUTROPHILS # (AUTO) 13.5 X10'3 (1.8-7.7); NEUTROPHILS % (AUTO) 88.6 % (42-75); PLATELET COUNT 231 X10'3 (140-440); RED BLOOD COUNT 3.09 X10'6 (4.70-6.10); RED CELL DISTRIBUTION WIDTH 14.2 % (11.5-14.5); WHITE BLOOD COUNT 15.2 X10'3 (4.5-11.0)
[2020-12-14 05:25] LABS: ALANINE AMINOTRANSFERASE 13 U/L (12-78); ALBUMIN 1.5 G/DL (3.4-5.0); ALBUMIN/GLOBULIN RATIO 0.4 (1.1-1.5); ALKALINE PHOSPHATASE 80 IU/L (46-116); ANION GAP 14 (8-16); ASPARTATE AMINO TRANSFERASE 18 U/L (10-37); BILIRUBIN,TOTAL 0.3 MG/DL (0.1-1.0); BLOOD UREA NITROGEN 92 MG/DL (7-18); BUN/CREATININE RATIO 18.8 (5.4-32.0); CALCIUM 7.2 MG/DL (8.5-10.1); CHLORIDE 117 MMOL/L (99-107); CREATININE 4.89 MG/DL (0.60-1.10); GLUCOSE 127 MG/DL (70-104); MAGNESIUM 1.8 MG/DL (1.5-2.4); PHOSPHORUS 4.8 MG/DL (2.3-4.5); SODIUM 153 MMOL/L (135-145); TOTAL CARBON DIOXIDE 21.8 MMOL/L (24-32); eGFR 11 ML/MIN
[2020-12-14 05:26] LABS: POTASSIUM 2.8 MMOL/L (3.5-5.1)
[2020-12-14] MEDS: POTASSIUM BICARB 20meq eff tab 20 MEQ TABLET.EFF PO PRN (05:42)
[2020-12-14 06:00] VITALS: BP 142/70
--- NOTE | 2020-12-14 06:10 | NUR ---
Patient in room PCU 3015. I have received report from licensed pesticide applicator RN and had the opportunity to ask questions and assume patient care.
--- NOTE | 2020-12-14 06:17 | NUR ---
Problems reprioritized. Patient report given, questions answered & plan of care reviewed with ANDREZ SINGH.
[2020-12-14] MEDS: lactobacillus rhamnosus 10,000 MMU CELLS/CAPSULE NG SCH ×2 (07:33→22:03)
[2020-12-14] MEDS: enoxaparin 30mg/0.3ml syringe SQ SCH (07:33)
[2020-12-14] MEDS: K and/or MAG REPLACEMENT MC SCH ×2 (07:37→20:00)
[2020-12-14] MEDS ORDERED: ringers solution, lacted 1,000 ML IV SCH (08:40)
[2020-12-14 11:00] VITALS: BP 119/77
[2020-12-14] MEDS ORDERED: normal saline 1000ml 1,000 ML IV SCH (11:05)
[2020-12-14] MEDS: Potassium Cl inj 40 MEQ in sodium chloride 0.45% 1,000 ML IV SCH ×3 (12:51→22:08)
--- NOTE | 2020-12-14 14:51 | NUR ---
PAGER ID: [phone] MESSAGE: RE: ANISHA 15A Navin. Do you want to stop the TPN? He isn't eating much but I think he will start to soon
[2020-12-14 15:00] VITALS: BP 173/79
--- NOTE | 2020-12-14 17:08 | NUR ---
PAGER ID: [phone] MESSAGE: RE: PCEdgard 15A Deshawn. The order for TPN has been discontinued in the eMAR. Do you want us to taper him off TPN? He hasn't eaten much today so far. Please advise.
--- NOTE | 2020-12-14 18:11 | NUR ---
Problems reprioritized. Patient report given, questions answered & plan of care reviewed with manufacturing supervisor 2nd shift RN.
[2020-12-14] MEDS ORDERED: Potassium Cl inj 40 MEQ in sodium chloride 0.45% 980 ML IV SCH (18:55)
--- NOTE | 2020-12-14 18:57 | NUR ---
PAGER ID: [phone] MESSAGE: RE: 15A PCU Navin. Pt only ate an ice cream today. Do you still want the TPN discontinued? Please call [phone] Bernadette. Thanks.
[2020-12-14 19:00] VITALS: BP_SYST 158; BP_SYST 170; BP_DIAS 73; BP_DIAS 78
--- NOTE | 2020-12-14 19:00 | NUR ---
Patient in room PCU 3015. I have received report from Ander SINGH and had the opportunity to ask questions and assume patient care.
--- NOTE | 2020-12-14 19:00 | NUR ---
Per Dr Vargas, if surgeon or Dr Ogden d/c TPN, then its ok to leave it discontinued.
[2020-12-14 21:00] VITALS: BP 163/85
[2020-12-14] MEDS: LORazepam 2 mg/ml vial IV PRN (23:27)
[2020-12-15] VITALS: BP 158/78
--- NOTE | 2020-12-15 02:06 | NUR ---
Pharmacy/nursing confused over primary fluid orders, so extension service specialist in charge stated that we are running 1/2 NS with 40MEQ of K and to reverify in the AM
[2020-12-15 03:00] VITALS: BP 150/97
[2020-12-15] MEDS: Potassium Cl inj 40 MEQ in sodium chloride 0.45% 1,000 ML IV SCH ×5 (03:25→17:31)
[2020-12-15 06:00] VITALS: BP 143/68
--- NOTE | 2020-12-15 06:05 | NUR ---
Problems reprioritized. Patient report given, questions answered & plan of care reviewed with Ander SINGH.
--- NOTE | 2020-12-15 06:05 | NUR ---
Received report from Bernadette SINGH.
[2020-12-15 06:34] LABS: ALANINE AMINOTRANSFERASE 22 U/L (12-78); ALBUMIN 1.8 G/DL (3.4-5.0); ALBUMIN/GLOBULIN RATIO 0.5 (1.1-1.5); ALKALINE PHOSPHATASE 96 IU/L (46-116); ANION GAP 13 (8-16); ASPARTATE AMINO TRANSFERASE 32 U/L (10-37); BILIRUBIN,TOTAL 0.6 MG/DL (0.1-1.0); BLOOD UREA NITROGEN 89 MG/DL (7-18); BUN/CREATININE RATIO 21.3 (5.4-32.0); CALCIUM 7.4 MG/DL (8.5-10.1); CHLORIDE 117 MMOL/L (99-107); CREATININE 4.17 MG/DL (0.60-1.10); GLUCOSE 108 MG/DL (70-104); MAGNESIUM 1.7 MG/DL (1.5-2.4); PHOSPHORUS 3.5 MG/DL (2.3-4.5); POTASSIUM 3.5 MMOL/L (3.5-5.1); SODIUM 151 MMOL/L (135-145); TOTAL CARBON DIOXIDE 21.5 MMOL/L (24-32); TOTAL PROTEIN 5.3 G/DL (6.4-8.2); eGFR 14 ML/MIN
[2020-12-15 06:36] LABS: BASOPHILS % (AUTO) 0.3 % (0-1); EOSINOPHILS # (AUTO) 0.3 X10'3 (0-0.9); EOSINOPHILS % (AUTO) 2.7 % (0-6); HEMATOCRIT 29.3 % (42.0-52.0); HEMOGLOBIN 9.6 g/dl (14.0-17.9); LYMPHOCYTES # (AUTO) 0.7 X10'3 (1.1-4.8); LYMPHOCYTES % (AUTO) 5.8 % (21-51); MEAN CORPUSCULAR HEMOGLOBIN 30.6 PG (27.0-31.0); MEAN CORPUSCULAR HGB CONC 32.9 g/dL (33.0-36.5); MEAN CORPUSCULAR VOLUME 92.8 FL (78-98); MONOCYTES # (AUTO) 0.7 X10'3 (0-0.9); MONOCYTES % (AUTO) 6.3 % (2-12); NEUTROPHILS % (AUTO) 84.9 % (42-75); PLATELET COUNT 248 X10'3 (140-440); RED BLOOD COUNT 3.16 X10'6 (4.70-6.10); RED CELL DISTRIBUTION WIDTH 14.6 % (11.5-14.5); WHITE BLOOD COUNT 11.8 X10'3 (4.5-11.0)
[2020-12-15] MEDS: lactobacillus rhamnosus 10,000 MMU CELLS/CAPSULE NG SCH ×2 (07:34→21:07)
[2020-12-15] MEDS: enoxaparin 30mg/0.3ml syringe SQ SCH (07:35)
[2020-12-15] MEDS: K and/or MAG REPLACEMENT MC SCH ×2 (07:36→20:00)
[2020-12-15] MEDS ORDERED: MVI, adult No.4 with vit. K 10 ML in dextrose 5% water 500ml 500 ML IV SCH ×2 (10:00)
[2020-12-15 11:00] VITALS: BP 153/62
[2020-12-15] MEDS: piperacillin/tazo 3.375gm/50ml 50 ML IV SCH (12:41)
[2020-12-15 15:00] VITALS: BP 180/97
--- NOTE | 2020-12-15 15:54 | NUR ---
PAGER ID: [phone] MESSAGE: RE: ANISHA 15A Navin, his BP occasionally runs above 160s could we have a PRN bp med just in case? Thank you.
[2020-12-15] MEDS: acetaminophen 325mg tablet PO PRN (17:24)
--- NOTE | 2020-12-15 18:20 | NUR ---
Patient in room PCU 3015. I have received report from Ander SINGH and had the opportunity to ask questions and assume patient care.
--- NOTE | 2020-12-15 18:21 | NUR ---
Problems reprioritized. Patient report given, questions answered & plan of care reviewed with Erin SINGH.
[2020-12-15 19:00] VITALS: BP 172/90
[2020-12-16] VITALS (7 sets, daily range): BP systolic 135–186; BP diastolic 73–98
[2020-12-16] MEDS: piperacillin/tazo 3.375gm/50ml 50 ML IV SCH ×2 (00:34→08:57)
[2020-12-16] MEDS: hydrALAZINE 20mg/ml inj. IV PRN ×2 (00:58→17:12)
[2020-12-16] MEDS: LORazepam 2 mg/ml vial IV PRN (01:51)
[2020-12-16] MEDS: acetaminophen 325mg tablet PO PRN ×2 (01:51→18:25)
[2020-12-16] MEDS: Potassium Cl inj 40 MEQ in sodium chloride 0.45% 1,000 ML IV SCH ×2 (04:24→12:58)
--- NOTE | 2020-12-16 06:24 | NUR ---
Patient in room PCU 3015. I have received report from Erin SINGH and had the opportunity to ask questions and assume patient care.
--- NOTE | 2020-12-16 06:40 | NUR ---
Problems reprioritized. Patient report given, questions answered & plan of care reviewed with Ander SINGH.
[2020-12-16 07:20] LABS: MAGNESIUM 1.4 MG/DL (1.5-2.4); PHOSPHORUS 3.6 MG/DL (2.3-4.5); POTASSIUM 3.8 MMOL/L (3.5-5.1); TRIGLYCERIDES 152 MG/DL (20-135)
[2020-12-16] MEDS: K and/or MAG REPLACEMENT MC SCH ×2 (08:00→20:21)
[2020-12-16] MEDS ORDERED: magnesium 4gm in 100ml NS 100 ML IV PRN (08:50)
[2020-12-16] MEDS: lactobacillus rhamnosus 10,000 MMU CELLS/CAPSULE NG SCH ×4 (08:56→20:27)
[2020-12-16] MEDS: enoxaparin 30mg/0.3ml syringe SQ SCH (08:57)
[2020-12-16] MEDS: magnesium Cl slow-release 64mg tablet PO PRN ×3 (09:03→20:28)
--- NOTE | 2020-12-16 10:28 | NUR ---
PAGER ID: [phone] Dr Vargas MESSAGE: RE: PCU 15A Navin. Maintenance Person recommends regular diet to encourage PO intake. Also Ensure shakes. Can I order them? Thanks.
--- NOTE | 2020-12-16 10:46 | NUR ---
Called Dr Rodrigues regarding advancing diet per drywall sander recommendations. Voicemail is full at this time. Will call again.
--- NOTE | 2020-12-16 11:19 | NUR ---
Dr Rodrigues said its ok for patient to have a regular diet and Ensure shakes TID
--- NOTE | 2020-12-16 11:36 | NUR ---
Reassessment: TPN was started 12/13 though discontinued 12/14. Pt currently on full liquid diet though not eating much; mainly just ice cream per RN. Will recommend advancing to Regular diet as RN states pt has no chewing or swallowing difficulty and has had BMs. Will also recommend ONS at this time to aid w/ repletion given pt w/ inadequate intake since admission (9days). LBM 12/15. Will continue to monitor PO trends upon diet advancement. Recommendations: 1) Advance to Regular diet if MD agreeable 2) Ensure Enlive TID to provide 1050kcals and 60g protein if consumed 100% 3) Bowel care per rx 4) Weekly wts Addendum: 12/16/20 at [address] Amended: Links added.
--- NOTE | 2020-12-16 11:50 | NUR ---
PAGER ID: [phone] MESSAGE: RE CECEU 15A Navin. Only has Tylenol for pain. Can we have other pain PRNs? PT thinks he doesn't want to ambulate because of pain.
[2020-12-16] MEDS: lactose-reduced food (Ensure Enlive) - 237ml bottle PO SCH ×2 (12:48→17:03)
[2020-12-16] MEDS ORDERED: dextrose 5%-water 1,000 ML IV SCH (13:10)
[2020-12-16] MEDS ORDERED: traMADol 50MG tablet PO ONE ×2 (13:15→13:55)
[2020-12-16 13:27] LABS: ANION GAP 15 (8-16); BLOOD UREA NITROGEN 79 MG/DL (7-18); CALCIUM 7.8 MG/DL (8.5-10.1); CHLORIDE 113 MMOL/L (99-107); CREATININE 3.59 MG/DL (0.60-1.10); GLUCOSE 95 MG/DL (70-104); SODIUM 148 MMOL/L (135-145); TOTAL CARBON DIOXIDE 20.3 MMOL/L (24-32); eGFR 16 ML/MIN
--- NOTE | 2020-12-16 13:49 | NUR ---
Dr Ogden RBTO to increase 1/2 NS w/ 40 KCl @ 125ml/hr to 200ml/hr and will reevaluate in the morning.
[2020-12-16] MEDS: Potassium Cl inj 40 MEQ in sodium chloride 0.45% 980 ML IV SCH ×2 (15:29→20:20)
--- NOTE | 2020-12-16 18:24 | NUR ---
PAGER ID: [phone] MESSAGE: RE: PCU 15A Sam. Pt c/o severe abdominal pain at this time. Could we have another dose of pain medication for the patient or a PRN? Thank you and maggie.
--- NOTE | 2020-12-16 18:37 | NUR ---
Report given to ferryboat deckhand RN.
--- NOTE | 2020-12-16 18:45 | NUR ---
Patient in room PCU 3015. I have received report from Ander SINGH and had the opportunity to ask questions and assume patient care.
--- NOTE | 2020-12-16 21:26 | NUR ---
Dr called with regard to ordering a low dose norco 5 q8hr if needed for c/o pain.
[2020-12-17] VITALS (7 sets, daily range): BP systolic 101–186; BP diastolic 65–88
[2020-12-17] MEDS: piperacillin/tazo 3.375gm/50ml 50 ML IV SCH ×3 (00:27→23:00)
[2020-12-17] MEDS: Potassium Cl inj 40 MEQ in sodium chloride 0.45% 980 ML IV SCH ×3 (00:45→10:12)
[2020-12-17 06:31] LABS: BASOPHILS % (AUTO) 0.4 % (0-1); EOSINOPHILS # (AUTO) 0.2 X10'3 (0-0.9); HEMATOCRIT 27.5 % (42.0-52.0); HEMOGLOBIN 9.5 g/dl (14.0-17.9); LYMPHOCYTES # (AUTO) 0.9 X10'3 (1.1-4.8); LYMPHOCYTES % (AUTO) 8.9 % (21-51); MEAN CORPUSCULAR HEMOGLOBIN 31.4 PG (27.0-31.0); MEAN CORPUSCULAR HGB CONC 34.4 g/dL (33.0-36.5); MEAN CORPUSCULAR VOLUME 91.2 FL (78-98); MONOCYTES # (AUTO) 0.8 X10'3 (0-0.9); MONOCYTES % (AUTO) 8.4 % (2-12); NEUTROPHILS # (AUTO) 8.1 X10'3 (1.8-7.7); NEUTROPHILS % (AUTO) 80.3 % (42-75); PLATELET COUNT 294 X10'3 (140-440); RED BLOOD COUNT 3.02 X10'6 (4.70-6.10); RED CELL DISTRIBUTION WIDTH 14.5 % (11.5-14.5); WHITE BLOOD COUNT 10.1 X10'3 (4.5-11.0)
--- NOTE | 2020-12-17 06:46 | NUR ---
Problems reprioritized. Patient report given, questions answered & plan of care reviewed with Ander SINGH.
[2020-12-17 06:51] LABS: ALANINE AMINOTRANSFERASE 90 U/L (12-78); ALBUMIN/GLOBULIN RATIO 0.6 (1.1-1.5); ALKALINE PHOSPHATASE 98 IU/L (46-116); ANION GAP 10 (8-16); ASPARTATE AMINO TRANSFERASE 74 U/L (10-37); BILIRUBIN,TOTAL 0.6 MG/DL (0.1-1.0); BLOOD UREA NITROGEN 68 MG/DL (7-18); BUN/CREATININE RATIO 21.7 (5.4-32.0); CALCIUM 7.5 MG/DL (8.5-10.1); CHLORIDE 115 MMOL/L (99-107); CREATININE 3.14 MG/DL (0.60-1.10); GLUCOSE 97 MG/DL (70-104); MAGNESIUM 1.2 MG/DL (1.5-2.4); PHOSPHORUS 3.5 MG/DL (2.3-4.5); POTASSIUM 5.4 MMOL/L (3.5-5.1); SODIUM 145 MMOL/L (135-145); TOTAL CARBON DIOXIDE 20.4 MMOL/L (24-32); TOTAL PROTEIN 5.5 G/DL (6.4-8.2); eGFR 19 ML/MIN
--- NOTE | 2020-12-17 06:57 | NUR ---
Received report from Erin SINGH.
[2020-12-17] MEDS: lactose-reduced food (Ensure Enlive) - 237ml bottle PO SCH ×3 (08:00→17:22)
[2020-12-17] MEDS: K and/or MAG REPLACEMENT MC SCH ×2 (08:00→19:50)
[2020-12-17] MEDS: HYDROcodone/acetaminophen 5mg/325mg tablet PO PRN ×2 (10:03→17:15)
[2020-12-17] MEDS: enoxaparin 30mg/0.3ml syringe SQ SCH (10:03)
[2020-12-17] MEDS: lactobacillus rhamnosus 10,000 MMU CELLS/CAPSULE NG SCH ×2 (10:06→19:49)
[2020-12-17] MEDS: magnesium Cl slow-release 64mg tablet PO PRN ×2 (10:08→22:20)
[2020-12-17] MEDS: sodium chloride 0.45% 1,000 ML IV SCH ×2 (10:53→20:50)
--- NOTE | 2020-12-17 18:03 | NUR ---
Patient in room PCU 3015. I have received report from smita richard and had the opportunity to ask questions and assume patient care.
--- NOTE | 2020-12-17 22:15 | NUR ---
patient has dementia is refusing care, and medications including magnesium slow release tab and culturelle. patient is unable to learn new information. will not accept treatment despite education. md chavezu notified, to obtain IV mag for pt mag level of 1.2
[2020-12-17] MEDS ORDERED: magnesium 4gm in 100ml NS 100 ML IV PRN (22:40)
[2020-12-18 02:00] VITALS: BP 136/76
--- NOTE | 2020-12-18 04:08 | NUR ---
labs successfully drawn from [facility] in [place] [id number]
[2020-12-18 04:43] LABS: ALANINE AMINOTRANSFERASE 132 U/L (12-78); ALBUMIN/GLOBULIN RATIO 0.6 (1.1-1.5); ALKALINE PHOSPHATASE 103 IU/L (46-116); ANION GAP 10 (8-16); ASPARTATE AMINO TRANSFERASE 98 U/L (10-37); BILIRUBIN,TOTAL 0.4 MG/DL (0.1-1.0); BLOOD UREA NITROGEN 61 MG/DL (7-18); BUN/CREATININE RATIO 21.7 (5.4-32.0); CALCIUM 7.8 MG/DL (8.5-10.1); CHLORIDE 114 MMOL/L (99-107); CREATININE 2.81 MG/DL (0.60-1.10); GLUCOSE 103 MG/DL (70-104); MAGNESIUM 2.9 MG/DL (1.5-2.4); PHOSPHORUS 3.6 MG/DL (2.3-4.5); POTASSIUM 4.8 MMOL/L (3.5-5.1); SODIUM 145 MMOL/L (135-145); TOTAL CARBON DIOXIDE 20.7 MMOL/L (24-32); TOTAL PROTEIN 5.2 G/DL (6.4-8.2); eGFR 22 ML/MIN
[2020-12-18 05:43] LABS: BASOPHILS # (AUTO) 0.2 X10'3 (0-0.2); BASOPHILS % (AUTO) 1.4 % (0-1); EOSINOPHILS # (AUTO) 0.2 X10'3 (0-0.9); HEMATOCRIT 27.5 % (42.0-52.0); LYMPHOCYTES # (AUTO) 1.2 X10'3 (1.1-4.8); LYMPHOCYTES % (AUTO) 11.3 % (21-51); MEAN CORPUSCULAR HEMOGLOBIN 30.1 PG (27.0-31.0); MEAN CORPUSCULAR HGB CONC 32.5 g/dL (33.0-36.5); MEAN CORPUSCULAR VOLUME 92.4 FL (78-98); MEAN PLATELET VOLUME 8.8 FL (7.4-10.4); MONOCYTES # (AUTO) 0.9 X10'3 (0-0.9); MONOCYTES % (AUTO) 8.5 % (2-12); NEUTROPHILS # (AUTO) 8.5 X10'3 (1.8-7.7); NEUTROPHILS % (AUTO) 76.8 % (42-75); PLATELET COUNT 330 X10'3 (140-440); RED BLOOD COUNT 2.98 X10'6 (4.70-6.10); RED CELL DISTRIBUTION WIDTH 14.4 % (11.5-14.5)
--- NOTE | 2020-12-18 06:21 | NUR ---
Patient in room PCU 3015. I have received report from Felicitas SINGH and had the opportunity to ask questions and assume patient care.
[2020-12-18] MEDS: sodium chloride 0.45% 1,000 ML IV SCH ×3 (06:50→23:40)
[2020-12-18 07:00] VITALS: BP 153/85
[2020-12-18] MEDS: K and/or MAG REPLACEMENT MC SCH ×2 (08:00→20:00)
[2020-12-18] MEDS: lactose-reduced food (Ensure Enlive) - 237ml bottle PO SCH ×3 (08:55→20:51)
[2020-12-18] MEDS: lactobacillus rhamnosus 10,000 MMU CELLS/CAPSULE NG SCH ×2 (08:55→20:52)
[2020-12-18] MEDS: enoxaparin 30mg/0.3ml syringe SQ SCH (09:11)
[2020-12-18 11:00] VITALS: BP 129/68
[2020-12-18 12:49] LABS: TOTAL CELLS COUNTED 100
[2020-12-18 12:50] LABS: HYPERSEGMENTED NEUTROPHILS 1+
[2020-12-18 12:51] LABS: PLATELET ESTIMATE NORMAL
[2020-12-18] MEDS: piperacillin/tazo 3.375gm/50ml 50 ML IV SCH ×2 (14:04→23:38)
[2020-12-18 15:30] VITALS: BP 148/70
--- NOTE | 2020-12-18 18:29 | NUR ---
Problems reprioritized. Patient report given, questions answered & plan of care reviewed with Nevaeh Rn. Pt high fowlers in bed working on dinner with daughter at bedside. no s/sx acute distress
[2020-12-18 18:30] VITALS: BP 158/75
[2020-12-18 22:00] VITALS: BP 165/77
[2020-12-19] VITALS (7 sets, daily range): BP systolic 128–167; BP diastolic 60–83
[2020-12-19 06:01] LABS: BASOPHILS # (AUTO) 0.1 X10'3 (0-0.2); BASOPHILS % (AUTO) 1.4 % (0-1); EOSINOPHILS # (AUTO) 0.3 X10'3 (0-0.9); EOSINOPHILS % (AUTO) 3.2 % (0-6); HEMOGLOBIN 7.2 g/dl (14.0-17.9); LYMPHOCYTES % (AUTO) 12.7 % (21-51); MEAN CORPUSCULAR HGB CONC 33.1 g/dL (33.0-36.5); MEAN CORPUSCULAR VOLUME 90.6 FL (78-98); MEAN PLATELET VOLUME 8.6 FL (7.4-10.4); MONOCYTES # (AUTO) 0.8 X10'3 (0-0.9); MONOCYTES % (AUTO) 9.5 % (2-12); NEUTROPHILS # (AUTO) 5.8 X10'3 (1.8-7.7); NEUTROPHILS % (AUTO) 73.2 % (42-75); PLATELET COUNT 263 X10'3 (140-440); RED BLOOD COUNT 2.41 X10'6 (4.70-6.10); RED CELL DISTRIBUTION WIDTH 14.1 % (11.5-14.5)
--- NOTE | 2020-12-19 06:08 | NUR ---
Patient in room PCU 3015. I have received report from REYNA RN and had the opportunity to ask questions and assume patient care.
[2020-12-19 06:32] LABS: ALANINE AMINOTRANSFERASE 161 U/L (12-78); ALBUMIN 1.8 G/DL (3.4-5.0); ALBUMIN/GLOBULIN RATIO 0.6 (1.1-1.5); ALKALINE PHOSPHATASE 110 IU/L (46-116); ANION GAP 9 (8-16); ASPARTATE AMINO TRANSFERASE 112 U/L (10-37); BILIRUBIN,TOTAL 0.3 MG/DL (0.1-1.0); BLOOD UREA NITROGEN 58 MG/DL (7-18); BUN/CREATININE RATIO 21.1 (5.4-32.0); CALCIUM 7.2 MG/DL (8.5-10.1); CHLORIDE 115 MMOL/L (99-107); CREATININE 2.75 MG/DL (0.60-1.10); GLUCOSE 96 MG/DL (70-104); MAGNESIUM 2.1 MG/DL (1.5-2.4); PHOSPHORUS 3.5 MG/DL (2.3-4.5); POTASSIUM 4.3 MMOL/L (3.5-5.1); PREALBUMIN 20.3 MG/DL (19-36); SODIUM 143 MMOL/L (135-145); TOTAL CARBON DIOXIDE 19.3 MMOL/L (24-32); TOTAL PROTEIN 4.9 G/DL (6.4-8.2); TRIGLYCERIDES 120 MG/DL (20-135); eGFR 22 ML/MIN
[2020-12-19 06:45] LABS: HEMATOCRIT 21.8 % (42.0-52.0)
[2020-12-19] MEDS: lactose-reduced food (Ensure Enlive) - 237ml bottle PO SCH ×3 (08:00→18:40)
[2020-12-19] MEDS: K and/or MAG REPLACEMENT MC SCH ×2 (08:00→20:00)
--- NOTE | 2020-12-19 08:37 | NUR ---
Dr. Vargas to floor. re-notified md of low H&H (dropped since yesterday) after previous page d/t critical low Hct. new order to repeat H&H. Dr. Vargas indicated she would speak with surgeon.
[2020-12-19 09:23] LABS: HEMATOCRIT 25.5 % (42.0-52.0); HEMOGLOBIN 8.7 g/dl (14.0-17.9); MEAN CORPUSCULAR HEMOGLOBIN 31.3 PG (27.0-31.0); MEAN PLATELET VOLUME 8.8 FL (7.4-10.4); PLATELET COUNT 350 X10'3 (140-440); RED BLOOD COUNT 2.77 X10'6 (4.70-6.10); RED CELL DISTRIBUTION WIDTH 14.2 % (11.5-14.5); WHITE BLOOD COUNT 10.1 X10'3 (4.5-11.0)
[2020-12-19] MEDS: enoxaparin 30mg/0.3ml syringe SQ SCH (11:33)
[2020-12-19] MEDS: piperacillin/tazo 3.375gm/50ml 50 ML IV SCH (11:37)
[2020-12-19] MEDS: sodium chloride 0.45% 1,000 ML IV SCH ×2 (11:42→21:13)
--- NOTE | 2020-12-19 11:45 | NUR ---
F/u 12/19: Pt advanced to Regular diet 12/16, though PO intake remains low, avg 24% x 8 meals and 22% x 8 ONS not meeting needs. RN reports pt needs lots of encouragement to eat, though still refuses some care and meals. RN states Pt likes ice cream, will honor food preferences. Pt w/ inadequate intake for 12 days since admission, observed at bedside w/ moderate facial waisting. At this time, pt meets minimum criteria for malnutrition. Discussed w/ RN that pt may benefit from TF to meet nutrient needs if within plan of care given hx of dementia. LBM 12/18. Will continue to monitor. Recommendations: 1) Continue Regular diet as tolerated; Vanilla ice cream BIDLD 2) Ensure Enlive TID to provide 1050kcals and 60g protein if consumed 100% 3) Bowel care per rx 4) Weekly wts 5) IF PO intake remains inadequate, may consider TF to meet regional intermodal truck driver nutrient needs if within plan of care Addendum: 12/19/20 at [address] Amended: Links added.
[2020-12-19] MEDS: HYDROcodone/acetaminophen 5mg/325mg tablet PO PRN (17:06)
--- NOTE | 2020-12-19 18:28 | NUR ---
Patient in room PCU 3015. I have received report from MU SINGH and had the opportunity to ask questions and assume patient care.
--- NOTE | 2020-12-19 18:29 | NUR ---
Problems reprioritized. Patient report given, questions answered & plan of care reviewed with Prudence RN. pt high fowlers in bed, daughter at bedside. no s/sx acute distress
[2020-12-20] MEDS: LORazepam 2 mg/ml vial IV PRN (00:04)
[2020-12-20] MEDS: piperacillin/tazo 3.375gm/50ml 50 ML IV SCH ×2 (00:05→13:27)
[2020-12-20] MEDS: acetaminophen 325mg tablet PO PRN ×2 (00:07→17:00)
[2020-12-20 02:00] VITALS: BP 123/73
[2020-12-20] MEDS: sodium chloride 0.45% 1,000 ML IV SCH (05:49)
--- NOTE | 2020-12-20 06:27 | NUR ---
Problems reprioritized. Patient report given, questions answered & plan of care reviewed with ARVIND SINGH AND TANI SINGH.
[2020-12-20 07:00] VITALS: BP 138/69
[2020-12-20] MEDS: lactose-reduced food (Ensure Enlive) - 237ml bottle PO SCH ×3 (08:00→18:00)
[2020-12-20] MEDS: K and/or MAG REPLACEMENT MC SCH ×2 (08:00→20:00)
[2020-12-20] MEDS: enoxaparin 30mg/0.3ml syringe SQ SCH (08:42)
[2020-12-20 10:24] LABS: BASOPHILS # (AUTO) 0.1 X10'3 (0-0.2); BASOPHILS % (AUTO) 1.4 % (0-1); EOSINOPHILS # (AUTO) 0.3 X10'3 (0-0.9); EOSINOPHILS % (AUTO) 3.6 % (0-6); HEMATOCRIT 23.9 % (42.0-52.0); HEMOGLOBIN 7.9 g/dl (14.0-17.9); LYMPHOCYTES # (AUTO) 1.2 X10'3 (1.1-4.8); LYMPHOCYTES % (AUTO) 15.7 % (21-51); MEAN CORPUSCULAR HEMOGLOBIN 30.5 PG (27.0-31.0); MEAN CORPUSCULAR VOLUME 92.5 FL (78-98); MEAN PLATELET VOLUME 8.6 FL (7.4-10.4); MONOCYTES # (AUTO) 0.7 X10'3 (0-0.9); MONOCYTES % (AUTO) 8.9 % (2-12); NEUTROPHILS # (AUTO) 5.3 X10'3 (1.8-7.7); NEUTROPHILS % (AUTO) 70.4 % (42-75); PLATELET COUNT 310 X10'3 (140-440); RED BLOOD COUNT 2.59 X10'6 (4.70-6.10); RED CELL DISTRIBUTION WIDTH 14.4 % (11.5-14.5); WHITE BLOOD COUNT 7.5 X10'3 (4.5-11.0)
[2020-12-20 10:38] LABS: ALANINE AMINOTRANSFERASE 184 U/L (12-78); ALBUMIN/GLOBULIN RATIO 0.6 (1.1-1.5); ALKALINE PHOSPHATASE 122 IU/L (46-116); ANION GAP 10 (8-16); ASPARTATE AMINO TRANSFERASE 95 U/L (10-37); BILIRUBIN,TOTAL 0.4 MG/DL (0.1-1.0); BLOOD UREA NITROGEN 47 MG/DL (7-18); BUN/CREATININE RATIO 17.9 (5.4-32.0); CALCIUM 7.6 MG/DL (8.5-10.1); CHLORIDE 112 MMOL/L (99-107); CREATININE 2.62 MG/DL (0.60-1.10); GLUCOSE 93 MG/DL (70-104); MAGNESIUM 1.7 MG/DL (1.5-2.4); POTASSIUM 4.3 MMOL/L (3.5-5.1); SODIUM 144 MMOL/L (135-145); TOTAL CARBON DIOXIDE 21.7 MMOL/L (24-32); TOTAL PROTEIN 5.5 G/DL (6.4-8.2); eGFR 23 ML/MIN
[2020-12-20 11:00] VITALS: BP 123/73
[2020-12-20 15:00] VITALS: BP 123/70
[2020-12-20 18:35] VITALS: BP 131/80
--- NOTE | 2020-12-20 18:39 | NUR ---
Problems reprioritized. Patient report given, questions answered & plan of care reviewed with FRANCISCO Cruz. Pt laying in bed resting comfortably. All pt needs met at this time.
--- NOTE | 2020-12-20 18:42 | NUR ---
Pt had black, coffee ground like, oily diarrhea bowel movement.
--- NOTE | 2020-12-20 18:43 | NUR ---
Patient in room PCU 3015. I have received report from France SINGH and had the opportunity to ask questions and assume patient care.
[2020-12-20 22:00] VITALS: BP 128/76
[2020-12-21] MEDS: piperacillin/tazo 3.375gm/50ml 50 ML IV SCH ×2 (00:50→12:09)
[2020-12-21 02:08] VITALS: BP 131/77
[2020-12-21] MEDS: sodium chloride 0.45% 1,000 ML IV SCH ×2 (03:53→14:50)
[2020-12-21 05:31] LABS: BASOPHILS # (AUTO) 0.1 X10'3 (0-0.2); BASOPHILS % (AUTO) 1.1 % (0-1); EOSINOPHILS # (AUTO) 0.3 X10'3 (0-0.9); EOSINOPHILS % (AUTO) 3.3 % (0-6); HEMATOCRIT 22.1 % (42.0-52.0); HEMOGLOBIN 7.4 g/dl (14.0-17.9); LYMPHOCYTES # (AUTO) 1.1 X10'3 (1.1-4.8); LYMPHOCYTES % (AUTO) 13.9 % (21-51); MEAN CORPUSCULAR HEMOGLOBIN 31.4 PG (27.0-31.0); MEAN CORPUSCULAR HGB CONC 33.5 g/dL (33.0-36.5); MEAN CORPUSCULAR VOLUME 93.6 FL (78-98); MEAN PLATELET VOLUME 8.9 FL (7.4-10.4); MONOCYTES # (AUTO) 0.6 X10'3 (0-0.9); MONOCYTES % (AUTO) 7.5 % (2-12); NEUTROPHILS # (AUTO) 5.8 X10'3 (1.8-7.7); NEUTROPHILS % (AUTO) 74.2 % (42-75); PLATELET COUNT 297 X10'3 (140-440); RED BLOOD COUNT 2.37 X10'6 (4.70-6.10); RED CELL DISTRIBUTION WIDTH 14.3 % (11.5-14.5); WHITE BLOOD COUNT 7.8 X10'3 (4.5-11.0)
[2020-12-21 05:56] LABS: ALANINE AMINOTRANSFERASE 150 U/L (12-78); ALBUMIN 1.9 G/DL (3.4-5.0); ALBUMIN/GLOBULIN RATIO 0.6 (1.1-1.5); ALKALINE PHOSPHATASE 120 IU/L (46-116); ANION GAP 9 (8-16); ASPARTATE AMINO TRANSFERASE 63 U/L (10-37); BILIRUBIN,TOTAL 0.3 MG/DL (0.1-1.0); BLOOD UREA NITROGEN 38 MG/DL (7-18); BUN/CREATININE RATIO 15.3 (5.4-32.0); CALCIUM 7.8 MG/DL (8.5-10.1); CHLORIDE 112 MMOL/L (99-107); CREATININE 2.48 MG/DL (0.60-1.10); GLUCOSE 103 MG/DL (70-104); MAGNESIUM 1.6 MG/DL (1.5-2.4); POTASSIUM 3.9 MMOL/L (3.5-5.1); SODIUM 143 MMOL/L (135-145); TOTAL CARBON DIOXIDE 21.9 MMOL/L (24-32); TOTAL PROTEIN 5.1 G/DL (6.4-8.2); eGFR 25 ML/MIN
--- NOTE | 2020-12-21 06:30 | NUR ---
Patient in room PCU 3015. I have received report from Cherise SINGH and had the opportunity to ask questions and assume patient care.
[2020-12-21 07:00] VITALS: BP 169/82
--- NOTE | 2020-12-21 07:10 | NUR ---
Problems reprioritized. Patient report given, questions answered & plan of care reviewed with France Jennings RN.
[2020-12-21] MEDS: HYDROcodone/acetaminophen 5mg/325mg tablet PO PRN (07:45)
[2020-12-21] MEDS: acetaminophen 325mg tablet PO PRN (07:45)
[2020-12-21] MEDS: enoxaparin 30mg/0.3ml syringe SQ SCH (07:46)
[2020-12-21] MEDS: lactose-reduced food (Ensure Enlive) - 237ml bottle PO SCH ×3 (07:46→18:00)
[2020-12-21] MEDS: K and/or MAG REPLACEMENT MC SCH ×2 (08:00→20:00)
[2020-12-21 11:00] VITALS: BP 112/58
[2020-12-21] MEDS: LORazepam 2 mg/ml vial IV PRN (12:09)
[2020-12-21 16:00] VITALS: BP 138/83
--- NOTE | 2020-12-21 18:29 | NUR ---
Problems reprioritized. Patient report given, questions answered & plan of care reviewed with soo richard.
--- NOTE | 2020-12-21 18:48 | NUR ---
Patient in room PCU 3015. I have received report from Stacey SINGH and had the opportunity to ask questions and assume patient care.
[2020-12-21] MEDS ORDERED: LORazepam 2 mg/ml vial IV PRN (21:40)
[2020-12-21 22:07] VITALS: BP 196/78
[2020-12-22] MEDS: piperacillin/tazo 3.375gm/50ml 50 ML IV SCH ×2 (00:53→13:17)
[2020-12-22 02:08] VITALS: BP 190/78
[2020-12-22 06:00] VITALS: BP 155/71
--- NOTE | 2020-12-22 06:06 | NUR ---
Patient in room PCU 3015. I have received report from Anthony and had the opportunity to ask questions and assume patient care.
[2020-12-22 06:35] LABS: BASOPHILS # (AUTO) 0.1 X10'3 (0-0.2); BASOPHILS % (AUTO) 1.2 % (0-1); EOSINOPHILS # (AUTO) 0.2 X10'3 (0-0.9); EOSINOPHILS % (AUTO) 2.9 % (0-6); LYMPHOCYTES # (AUTO) 0.9 X10'3 (1.1-4.8); LYMPHOCYTES % (AUTO) 14.9 % (21-51); MEAN CORPUSCULAR HEMOGLOBIN 32.2 PG (27.0-31.0); MEAN CORPUSCULAR HGB CONC 34.3 g/dL (33.0-36.5); MEAN CORPUSCULAR VOLUME 93.8 FL (78-98); MEAN PLATELET VOLUME 8.8 FL (7.4-10.4); MONOCYTES # (AUTO) 0.6 X10'3 (0-0.9); MONOCYTES % (AUTO) 9.8 % (2-12); NEUTROPHILS # (AUTO) 4.4 X10'3 (1.8-7.7); NEUTROPHILS % (AUTO) 71.2 % (42-75); PLATELET COUNT 278 X10'3 (140-440); RED BLOOD COUNT 2.16 X10'6 (4.70-6.10); RED CELL DISTRIBUTION WIDTH 14.4 % (11.5-14.5); WHITE BLOOD COUNT 6.1 X10'3 (4.5-11.0)
[2020-12-22 06:44] LABS: ALANINE AMINOTRANSFERASE 121 U/L (12-78); ALBUMIN 1.9 G/DL (3.4-5.0); ALBUMIN/GLOBULIN RATIO 0.6 (1.1-1.5); ALKALINE PHOSPHATASE 113 IU/L (46-116); ANION GAP 9 (8-16); ASPARTATE AMINO TRANSFERASE 48 U/L (10-37); BILIRUBIN,TOTAL 0.3 MG/DL (0.1-1.0); BLOOD UREA NITROGEN 32 MG/DL (7-18); BUN/CREATININE RATIO 13.7 (5.4-32.0); CALCIUM 7.8 MG/DL (8.5-10.1); CHLORIDE 112 MMOL/L (99-107); CREATININE 2.33 MG/DL (0.60-1.10); GLUCOSE 90 MG/DL (70-104); MAGNESIUM 1.5 MG/DL (1.5-2.4); POTASSIUM 3.8 MMOL/L (3.5-5.1); SODIUM 144 MMOL/L (135-145); TOTAL CARBON DIOXIDE 23.5 MMOL/L (24-32); eGFR 27 ML/MIN
--- NOTE | 2020-12-22 06:44 | NUR ---
Problems reprioritized. Patient report given, questions answered & plan of care reviewed with Ander SINGH.
[2020-12-22 06:46] LABS: HEMATOCRIT 20.3 % (42.0-52.0)
--- NOTE | 2020-12-22 06:52 | NUR ---
PAGER ID: [phone] MESSAGE: RE: ANISHA 15Lexi Holden. Hgb 7.0, Hct 20.3 today.
[2020-12-22] MEDS: enoxaparin 30mg/0.3ml syringe SQ SCH (07:47)
[2020-12-22] MEDS: K and/or MAG REPLACEMENT MC SCH ×2 (07:48→20:00)
[2020-12-22] MEDS: lactose-reduced food (Ensure Enlive) - 237ml bottle PO SCH ×3 (07:48→17:13)
--- NOTE | 2020-12-22 09:30 | NUR ---
F/u 12/22: PO intake improved since last RD assessment. Avg intake 45% x 9 meals on Regular diet and 34% x 8 ONS currently meeting minimum nutrient needs. Pt continues to be confused and needs assistance w/ feeding. LBM 12/21 noted to be liquid and black. No new nutritional intervention implemented at this time, will continue to monitor. Recommendations: 1) Continue Regular diet as tolerated; Vanilla ice cream BIDLD 2) Ensure Enlive TID to provide 1050kcals and 60g protein if consumed 100% 3) Bowel care per rx 4) Weekly wts 5) IF PO intake remains inadequate, may consider TF to meet [facility]entiary nutrient needs if within plan of care Addendum: 12/22/20 at [address] Amended: Links added.
[2020-12-22] MEDS: diatr meglu/diatrizoate 30ml oral sol.-(3 dose) bottle PO SCH ×3 (10:29→15:00)
[2020-12-22 11:00] VITALS: BP 160/77
[2020-12-22 18:40] VITALS: BP 149/72
[2020-12-22] MEDS: pantoprazole 40mg Tablet.DR PO SCH (20:54)
[2020-12-22 22:00] VITALS: BP 158/78
[2020-12-23] VITALS (15 sets, daily range): BP systolic 136–158; BP diastolic 66–86
[2020-12-23] MEDS: piperacillin/tazo 3.375gm/50ml 50 ML IV SCH ×2 (00:17→09:21)
[2020-12-23 06:08] LABS: BASOPHILS # (AUTO) 0.1 X10'3 (0-0.2); BASOPHILS % (AUTO) 1.2 % (0-1); EOSINOPHILS # (AUTO) 0.2 X10'3 (0-0.9); EOSINOPHILS % (AUTO) 3.4 % (0-6); LYMPHOCYTES # (AUTO) 1.1 X10'3 (1.1-4.8); LYMPHOCYTES % (AUTO) 19.6 % (21-51); MEAN CORPUSCULAR HEMOGLOBIN 32.9 PG (27.0-31.0); MEAN CORPUSCULAR HGB CONC 34.8 g/dL (33.0-36.5); MEAN CORPUSCULAR VOLUME 94.3 FL (78-98); MEAN PLATELET VOLUME 8.7 FL (7.4-10.4); MONOCYTES # (AUTO) 0.6 X10'3 (0-0.9); MONOCYTES % (AUTO) 10.3 % (2-12); NEUTROPHILS # (AUTO) 3.8 X10'3 (1.8-7.7); NEUTROPHILS % (AUTO) 65.5 % (42-75); PLATELET COUNT 303 X10'3 (140-440); RED BLOOD COUNT 2.04 X10'6 (4.70-6.10); RED CELL DISTRIBUTION WIDTH 14.1 % (11.5-14.5); WHITE BLOOD COUNT 5.8 X10'3 (4.5-11.0)
[2020-12-23 06:12] LABS: HEMATOCRIT 19.2 % (42.0-52.0); HEMOGLOBIN 6.7 g/dl (14.0-17.9)
--- NOTE | 2020-12-23 06:32 | NUR ---
Patient in room PCU 3015. I have received report from Ash SINGH and had the opportunity to ask questions and assume patient care.
[2020-12-23 06:45] LABS: ALANINE AMINOTRANSFERASE 108 U/L (12-78); ALBUMIN/GLOBULIN RATIO 0.6 (1.1-1.5); ALKALINE PHOSPHATASE 112 IU/L (46-116); ANION GAP 9 (8-16); ASPARTATE AMINO TRANSFERASE 40 U/L (10-37); BILIRUBIN,TOTAL 0.3 MG/DL (0.1-1.0); BLOOD UREA NITROGEN 28 MG/DL (7-18); BUN/CREATININE RATIO 12.4 (5.4-32.0); CALCIUM 7.7 MG/DL (8.5-10.1); CHLORIDE 112 MMOL/L (99-107); CREATININE 2.26 MG/DL (0.60-1.10); FERRITIN 422 NG/ML (26-388); GLUCOSE 90 MG/DL (70-104); PHOSPHORUS 3.4 MG/DL (2.3-4.5); POTASSIUM 3.6 MMOL/L (3.5-5.1); PREALBUMIN 26.9 MG/DL (19-36); SODIUM 145 MMOL/L (135-145); TOTAL PROTEIN 5.3 G/DL (6.4-8.2); TRIGLYCERIDES 93 MG/DL (20-135); eGFR 28 ML/MIN
[2020-12-23 06:47] LABS: % IRON SATURATION 25 % (11-46); IRON 46 UG/DL (53-167); TOTAL IRON BINDING CAPACITY 187 UG/DL (259-388)
--- NOTE | 2020-12-23 06:51 | NUR ---
Problems reprioritized. Patient report given, questions answered & plan of care reviewed with Bhavin SINGH. Addendum: 12/23/20 at 0651 by Cody Roblero RN Amended: Links added.
[2020-12-23] MEDS: enoxaparin 30mg/0.3ml syringe SQ SCH (08:00)
[2020-12-23] MEDS: lactose-reduced food (Ensure Enlive) - 237ml bottle PO SCH ×3 (08:00→18:00)
[2020-12-23] MEDS: K and/or MAG REPLACEMENT MC SCH ×2 (08:00→20:00)
[2020-12-23] MEDS: pantoprazole 40mg Tablet.DR PO SCH ×2 (09:21→20:00)
[2020-12-23] MEDS: HYDROcodone/acetaminophen 5mg/325mg tablet PO PRN ×2 (10:44→14:22)
[2020-12-23] MEDS ORDERED: fentaNYL/PF 50MCG/1 ML 2ML syringe ONE (14:37)
[2020-12-23] MEDS ORDERED: MIDAZolam 1 MG/ML 5ML VIAL ONE (14:37)
[2020-12-23] MEDS ORDERED: LIDOcaine Viscous 15ml cup ONE (14:38)
--- NOTE | 2020-12-23 18:13 | NUR ---
Patient in room PCU 3015. I have received report from Sandrine SINGH and had the opportunity to ask questions and assume patient care.
--- NOTE | 2020-12-23 18:30 | NUR ---
Patient in room PCU 3015. I have received report from ABIOLA and had the opportunity to ask questions and assume patient care.
[2020-12-24 02:00] VITALS: BP 152/75
--- NOTE | 2020-12-24 06:19 | NUR ---
Problems reprioritized. Patient report given, questions answered & plan of care reviewed with JONAH.
--- NOTE | 2020-12-24 06:49 | NUR ---
Patient in room PCU 3015. I have received report from FRANCISCO Deluca and had the opportunity to ask questions and assume patient care. Patient awake in bed and in no acute distress.
[2020-12-24 07:00] VITALS: BP 123/68
[2020-12-24] MEDS: pantoprazole 40mg Tablet.DR PO SCH (07:48)
[2020-12-24] MEDS: K and/or MAG REPLACEMENT MC SCH (08:00)
[2020-12-24] MEDS: enoxaparin 30mg/0.3ml syringe SQ SCH (08:00)
[2020-12-24] MEDS: lactose-reduced food (Ensure Enlive) - 237ml bottle PO SCH ×2 (08:00→13:00)
[2020-12-24] MEDS ORDERED: ENOX30DI4 SQ (10:15)
[2020-12-24] MEDS ORDERED: PANT40TA54 PO (10:15)
[2020-12-24 11:00] VITALS: BP 145/75
--- NOTE | 2020-12-24 11:24 | NUR ---
WOUND VAC EDUCATION PROVIDED BY WOUND CARE 1. Patient instructed to call the Wound Center or their Home Health Agency immediately if: * They notice a change in the color or amount of the fluid in the canister. * Their wound looks more red than usual or has a foul smell. * The skin around their wound looks reddened or irritated. * The dressing feels loose or appears to be loose. * They experience any increase or changes in their pain. * The alarm will not turn off. 2. Patient instructed that they should not be disconnected from suction for more than 2 hours at a time. * If they are not able to get the suction back on, they need to remove the dressing and take all of the foam out of the wound. * Then moisten sterile gauze with normal saline and place on/in the wound. * Change the dressing once a day until arrangements have been made to replace the wound vac dressing. 3. Patient instructed to turn the wound vac machine OFF and call 911 or go to the ED immediately if their canister fills rapidly with blood. 4. If any of these occur while in the hospital tell a nurse immediately. Addendum: 12/24/20 at 1124 by Lorraine Wiseman RN Amended: Links added.
--- NOTE | 2020-12-24 12:26 | NUR ---
Paged Dr. Vargas regarding patient still having an NPO diet and if we could switch to a regular diet prior to patient being picked up. PAGER ID: [phone] MESSAGE: [phone]. MARQUITA GONCALVES. PATIENT STILL HAS NPO ORDER. MAY I SWITCH TO REGULAR AGAIN FOR LUNCH PRIOR TO PATIENT LEAVING? THANK YOU. JONAH SINGH X [phone]
--- NOTE | 2020-12-24 14:06 | NUR ---
Orders for a miscellaneous nursing order put in per Dr. Rodrigues for wound vac to be taken down and changed to a wet to dry dressing change until a wound vac becomes available tomorrow at [facility].
[2020-12-24] MEDS: HYDROcodone/acetaminophen 5mg/325mg tablet PO PRN (16:23)
--- NOTE | 2020-12-24 16:25 | NUR ---
Patient stable for transfer per MD orders. All discharge instructions and questions answered appropriately with patient and family. Belongings collected and sent with the patient. Wound vac disconnected and wet to dry dressing put in place for transfer. Transfer report called to FRANCISCO Bhardwaj at [facility]. PICC left in place for transfer to facility. Family at the bedside and will follow [facility] transportation to [facility].
== END 2020-12-24 16:25 | DRG 329 ==
LOC: ER 21:16 → ED HOLD 12-05 04:57 → EDBEDREQSVC 12-05 07:17 → PCU 3S 12-05 08:06
PROVIDERS: ADMIT Family Medicine; ATTEND Family Medicine
PROC: CB121ZZ Planar Nuclear Medicine Imaging of Lungs and Bronchi using Technetium 99m (Tc-99m) (ICD-10-PCS; 2020-12-06)
PROC: 0D9670Z Drainage of Stomach with Drainage Device, Via Natural or Artificial Opening (ICD-10-PCS; 2020-12-09)
PROC: 0W9G0ZZ Drainage of Peritoneal Cavity, Open Approach (ICD-10-PCS; 2020-12-10)
PROC: 3E0T3BZ Introduction of Anesthetic Agent into Peripheral Nerves and Plexi, Percutaneous Approach (ICD-10-PCS; 2020-12-10)
PROC: 0DB80ZZ Excision of Small Intestine, Open Approach (ICD-10-PCS; principal; 2020-12-10 21:04)
PROC: 02HV33Z Insertion of Infusion Device into Superior Vena Cava, Percutaneous Approach (ICD-10-PCS; 2020-12-13)
PROC: B548ZZA Ultrasonography of Superior Vena Cava, Guidance (ICD-10-PCS; 2020-12-13)
PROC: 0DB68ZX Excision of Stomach, Via Natural or Artificial Opening Endoscopic, Diagnostic (ICD-10-PCS; 2020-12-23)
DX: K57.80 Diverticulitis of intestine, part unspecified, with perforation and abscess without bleeding (principal); I26.99 Other pulmonary embolism without acute cor pulmonale; K65.1 Peritoneal abscess; K56.601 Complete intestinal obstruction, unspecified as to cause; E87.1 Hypo-osmolality and hyponatremia; N17.9 Acute kidney failure, unspecified; M62.82 Rhabdomyolysis; E87.0 Hyperosmolality and hypernatremia; D64.9 Anemia, unspecified; E86.0 Dehydration; I48.91 Unspecified atrial fibrillation; R41.0 Disorientation, unspecified; K21.00 Gastro-esophageal reflux disease with esophagitis, without bleeding; R19.7 Diarrhea, unspecified; N18.30 Chronic kidney disease, stage 3 unspecified; K25.9 Gastric ulcer, unspecified as acute or chronic, without hemorrhage or perforation; R06.6 Hiccough; Z20.822 Contact with and (suspected) exposure to COVID-19; F17.220 Nicotine dependence, chewing tobacco, uncomplicated; K44.9 Diaphragmatic hernia without obstruction or gangrene; T40.695A Adverse effect of other narcotics, initial encounter; Y92.230 Patient room in hospital as the place of occurrence of the external cause; R12 Heartburn; R49.0 Dysphonia; Z79.01 Long term (current) use of anticoagulants; Z80.0 Family history of malignant neoplasm of digestive organs; Z80.1 Family history of malignant neoplasm of trachea, bronchus and lung; Z80.3 Family history of malignant neoplasm of breast; Z80.8 Family history of malignant neoplasm of other organs or systems; Z85.46 Personal history of malignant neoplasm of prostate
CPT/HCPCS: 36573; 43239; 93306; 99285; Z7506; Z7508; 36415; 71045; 71046; 74176; 74177; 76770; 78452; 78582; 80048; 80053; 81001; 82550; 82570; 82728; 82948; 83540; 83550; 83690; 83735; 83874; 84100; 84134; 84155; 84156; 84165; 84166; 84300; 84478; 84484; 85007; 85025; 85027; 85379; 85610; 85651; 85730; 86038; 86160; 87077; 87081; 87088; 87186; 87207; 87635; 88305; 88307; 88313; 88342; 93005; 97110; 97116; 97161; 97164; 97530; 97535; 99152; A4215; A4618; A4620; A6550; A7000; A9500; A9539; A9540; C9290; C9399; G0378; J0360; J0696; J1170; J1644; J1650; J2001; J2060; J2250; J2405; J2543; J3010; J3475; J3480; J3490; J7030; J7040; J7070; J7120; Q9963

== ENCOUNTER 2021-02-08 10:14 | Inpatient (IN) | payer BC, MEDICARE, OTHER ==
[~2021-02-08] VITALS: Ht 180.3 cm; Wt 77.3 kg
[~2021-02-08 10:14] MED LIST: ENOX30DI4 SQ; PANT40TA54 PO
[2021-02-08 12:07] LABS: CLARITY,URINE CLOUDY (Clear); COLOR,URINE YELLOW (Yellow); GLUCOSE, URINE NEGATIVE (Neg); KETONES,URINE NEGATIVE (Neg); NITRITES, URINE NEGATIVE (Neg); OCCULT BLOOD,URINE LARGE (Neg); PH,URINE 5.5 (4.8-8.0); PROTEIN,URINE 100 mg/dl (Neg); UA COLLECTION TYPE CLN CATCH MIDSTREAM; UROBILINOGEN,URINE 0.2 E.U/dL (0.2-1.0)
[2021-02-08 12:08] LABS: LEUKOCYTE ESTERASE ,URINE NEGATIVE (Neg)
[2021-02-08 12:09] LABS: RBC,URINE 0-2 /HPF (0-2); WBC,URINE 0-4 /HPF (0-4)
[2021-02-08 12:10] LABS: AMORPHOUS URATES 1+; BACTERIA,URINE NONE SEEN /HPF (Neg); HYALINE CASTS 0-3 /LPF (NEGATIVE); MUCUS STRANDS NONE SEEN /LPF (Neg); SQUAMOUS EPITHELIAL CELL,UR NONE SEEN /LPF (FEW)
[2021-02-08 12:40] LABS: BASOPHILS % (AUTO) 0.1 % (0-1); EOSINOPHILS % (AUTO) 0 % (0-6); HEMATOCRIT 24.4 % (42.0-52.0); HEMOGLOBIN 8.3 g/dl (14.0-17.9); LYMPHOCYTES % (AUTO) 12.6 % (21-51); MEAN CORPUSCULAR HEMOGLOBIN 31.6 PG (27.0-31.0); MEAN CORPUSCULAR HGB CONC 33.9 g/dL (33.0-36.5); MEAN CORPUSCULAR VOLUME 93.2 FL (78-98); MEAN PLATELET VOLUME 9.1 FL (7.4-10.4); MONOCYTES # (AUTO) 0.6 X10'3 (0-0.9); NEUTROPHILS # (AUTO) 6.4 X10'3 (1.8-7.7); NEUTROPHILS % (AUTO) 80.3 % (42-75); PLATELET COUNT 136 X10'3 (140-440); RED BLOOD COUNT 2.62 X10'6 (4.70-6.10); RED CELL DISTRIBUTION WIDTH 15.6 % (11.5-14.5)
[2021-02-08 12:51] LABS: ALANINE AMINOTRANSFERASE 30 U/L (12-78); ALBUMIN 2.6 G/DL (3.4-5.0); ALBUMIN/GLOBULIN RATIO 0.7 (1.1-1.5); ALKALINE PHOSPHATASE 50 IU/L (46-116); ANION GAP 16 (8-16); ASPARTATE AMINO TRANSFERASE 99 U/L (10-37); BILIRUBIN,DIRECT 0.1 MG/DL (0-0.3); BILIRUBIN,TOTAL 0.3 MG/DL (0.1-1.0); BLOOD UREA NITROGEN 59 MG/DL (7-18); BUN/CREATININE RATIO 14.4 (5.4-32.0); CALCIUM 7.9 MG/DL (8.5-10.1); CHLORIDE 110 MMOL/L (99-107); CREATININE 4.11 MG/DL (0.60-1.10); GLUCOSE 117 MG/DL (70-104); LIPASE 256 U/L (73-393); POTASSIUM 3.7 MMOL/L (3.5-5.1); SODIUM 142 MMOL/L (135-145); TOTAL CARBON DIOXIDE 16.3 MMOL/L (24-32); TOTAL PROTEIN 6.5 G/DL (6.4-8.2); eGFR 14 ML/MIN
[2021-02-08] MEDS ORDERED: REMDESIVIR INJ 100 MG in normal saline 100ml IV soln 80 ML IV ONE (13:30)
[2021-02-08] MEDS ORDERED: mag hydrox/Alum hydrox/simeth 30ml oral suspension PO PRN (14:35)
[2021-02-08] MEDS ORDERED: ondansetron/PF 4mg/2ml inj IV PRN (14:35)
[2021-02-08] MEDS ORDERED: acetaminophen 325mg tablet PO PRN (14:35)
[2021-02-08] MEDS ORDERED: magnesium hydroxide 30ml (MOM) UD suspension PO PRN (14:35)
--- NOTE | 2021-02-08 14:45 | NUR ---
Pt incontinent of stool. Perii care and linen change complete
[2021-02-08] MEDS: normal saline 1000ml 1,000 ML IV SCH (15:08)
[2021-02-08] MEDS ORDERED: FERR325T29 PO (15:15)
[2021-02-08] MEDS ORDERED: TRAZ-251 PO (15:15)
[2021-02-08] MEDS ORDERED: PANT-47 PO (15:15)
[2021-02-08] MEDS ORDERED: DOCU-337 PO (15:15)
--- NOTE | 2021-02-08 19:00 | NUR ---
PT HAD A LARGE BOWEL MOVEMENT ON HIMSELF. PT IS NOW CLEANED UP, NEW LINENS, NEW GOWN. PT ALSO GIVEN MEAL TRAY. PT NOW SITTING AND EATING MEAL. NO COMPLAINTS AT PRESENT
[2021-02-08] MEDS ORDERED: docusate sod 100mg capsule PO SCH (20:00)
[2021-02-08] MEDS ORDERED: dexamethasone 4mg/ml inj IV SCH (20:00)
[2021-02-08] MEDS: dexamethasone inj 4 MG in dextrose 5%-water 100 ML IV SCH (20:00)
--- NOTE | 2021-02-08 20:19 | NUR ---
GRANDDAUGHTER ASHLEY CALLED FOR UPDATE ON PT
--- NOTE | 2021-02-08 21:03 | NUR ---
PHARMACY IS GETTING DECADRON READY
[2021-02-08] MEDS: enoxaparin 30mg/0.3ml syringe SQ SCH (21:07)
--- NOTE | 2021-02-08 21:42 | NUR ---
SCANNER IN ROOM 13 NOT WORKING, GAS DISTRIBUTION PLANT OPERATOR AWARE.
--- NOTE | 2021-02-09 00:30 | NUR ---
PT SLEEPING WELL. PROVIDED A NEW WARM BLANKET. EQUAL RISE AND FALL OF CHEST.
[2021-02-09] MEDS: normal saline 1000ml 1,000 ML IV SCH ×3 (00:31→21:06)
[2021-02-09] MEDS ORDERED: traZODone 50mg tablet PO PRN (08:12)
[2021-02-09 08:13] LABS: BASOPHILS % (AUTO) 0.1 % (0-1); EOSINOPHILS % (AUTO) 0 % (0-6); HEMOGLOBIN 9.1 g/dl (14.0-17.9); LYMPHOCYTES # (AUTO) 0.8 X10'3 (1.1-4.8); LYMPHOCYTES % (AUTO) 6.2 % (21-51); MEAN CORPUSCULAR HEMOGLOBIN 31.4 PG (27.0-31.0); MEAN CORPUSCULAR HGB CONC 33.9 g/dL (33.0-36.5); MEAN CORPUSCULAR VOLUME 92.6 FL (78-98); MONOCYTES # (AUTO) 0.4 X10'3 (0-0.9); MONOCYTES % (AUTO) 3.2 % (2-12); NEUTROPHILS # (AUTO) 11.8 X10'3 (1.8-7.7); NEUTROPHILS % (AUTO) 90.5 % (42-75); PLATELET COUNT 160 X10'3 (140-440); RED BLOOD COUNT 2.91 X10'6 (4.70-6.10); RED CELL DISTRIBUTION WIDTH 15.8 % (11.5-14.5)
[2021-02-09] MEDS: enoxaparin 30mg/0.3ml syringe SQ SCH ×2 (08:15→19:44)
[2021-02-09 08:27] LABS: ALBUMIN 2.4 G/DL (3.4-5.0); ANION GAP 14 (8-16); BLOOD UREA NITROGEN 68 MG/DL (7-18); BUN/CREATININE RATIO 17.3 (5.4-32.0); CHLORIDE 115 MMOL/L (99-107); CREATININE 3.93 MG/DL (0.60-1.10); GLUCOSE 136 MG/DL (70-104); POTASSIUM 3.8 MMOL/L (3.5-5.1); SODIUM 144 MMOL/L (135-145); TOTAL CARBON DIOXIDE 15.4 MMOL/L (24-32); eGFR 15 ML/MIN
--- NOTE | 2021-02-09 10:24 | NUR ---
assumed care of pt from Christoph SINGH
--- NOTE | 2021-02-09 11:21 | NUR ---
HOSPITALIST AT BEDSIDE, SAID PT NEEDS TO BE EVALUATED BY PT, HE CAN GO HOME AFTER PT EVALUATION IS OK, PT IS GCS 14, H/O DEMENTIA, RESP EVEN AND UNLABORED, SKIN P/W/D, LUNGS CTA BILATERALLY
[2021-02-09] MEDS: docusate sod 100mg capsule PO SCH ×3 (11:30→19:44)
[2021-02-09] MEDS: dexamethasone inj 4 MG in dextrose 5%-water 100 ML IV SCH ×2 (11:31→21:06)
[2021-02-09] MEDS: ferrous sulfate 325mg tablet PO SCH ×2 (11:31→11:34)
[2021-02-09] MEDS: pantoprazole 40mg Tablet.DR PO SCH ×3 (11:31→19:44)
--- NOTE | 2021-02-09 11:41 | NUR ---
PT IS EATING BREAKFAST, NEEDS SOME ASSISTANCE, MARCEL WELL, NO N/V
--- NOTE | 2021-02-09 11:53 | NUR ---
pt is refusing PO meds, "I don't really need them,,,I am fine", tried explaining benefits of med but pt still refusing
--- NOTE | 2021-02-09 11:54 | NUR ---
PT paged to evaluate pt
--- NOTE | 2021-02-09 14:00 | NUR ---
pt had loose brown bowel movement, depends was changed
--- NOTE | 2021-02-09 16:28 | NUR ---
TALKED WITH ASHLEY, GRANDDAUGHTER AND POA, SHE IS AWARE OF PLAN FOR PT EVALUATION AND POSSIBLY DC HOME, SHE HAS BEEN TRYING TO FIND PLACEMENT FOR PT SHE IS UNABLE TO CARE FOR 24/7 AT HOME AND IS NOT ABLE TO LIFT HIM
--- NOTE | 2021-02-09 17:06 | NUR ---
PT AT BEDSIDE TO EVAL PT, PT ABLE TO STAND WITH GAIT BELT AND MIN ASSIST, USED URINAL AND USED COMMODE FOR SMALL LOOSE BOWEL MOVEMENT, PT ASSISTED BACK TO BED.
--- NOTE | 2021-02-09 17:14 | NUR ---
DR GARCIA AWARE OF PT ASSESSMENT, PLAN TO HOLD PT AND NOT DC HOME
--- NOTE | 2021-02-09 17:20 | NUR ---
TALKED WITH ASHLEY, GRANDDAUGHTER, AWARE OF PLAN TO KEEP PT IN HOSPITAL
--- NOTE | 2021-02-09 22:48 | NUR ---
pt pulled out iv, cannula intact, pt cleaned up and brief changed as well. will attempt to start another iv.
--- NOTE | 2021-02-09 23:00 | NUR ---
attempted to place a new IV. pt refused, stated "I don't need that". advised pt on the need for iv fluids and iv medication passes, pt still refused. will continue to encourage PO fluids.
--- NOTE | 2021-02-10 04:04 | NUR ---
pt confused and yelling out. pt pulled off all cords, tele monitor and gown. pt incontinent of stool and urine, changed gown, changed brief and bedding. pt now resting comfortably with bed locked in low position with tele monitor back on and call light in reach.
[2021-02-10 07:11] LABS: BASOPHILS % (AUTO) 0.1 % (0-1); EOSINOPHILS % (AUTO) 0 % (0-6); HEMATOCRIT 27.2 % (42.0-52.0); HEMOGLOBIN 9.3 g/dl (14.0-17.9); LYMPHOCYTES # (AUTO) 0.8 X10'3 (1.1-4.8); LYMPHOCYTES % (AUTO) 5.3 % (21-51); MEAN CORPUSCULAR HEMOGLOBIN 31.8 PG (27.0-31.0); MEAN CORPUSCULAR HGB CONC 34.1 g/dL (33.0-36.5); MEAN CORPUSCULAR VOLUME 93.2 FL (78-98); MONOCYTES # (AUTO) 0.4 X10'3 (0-0.9); MONOCYTES % (AUTO) 2.5 % (2-12); NEUTROPHILS % (AUTO) 92.1 % (42-75); PLATELET COUNT 206 X10'3 (140-440); RED BLOOD COUNT 2.91 X10'6 (4.70-6.10); RED CELL DISTRIBUTION WIDTH 15.8 % (11.5-14.5); WHITE BLOOD COUNT 15.2 X10'3 (4.5-11.0)
[2021-02-10 07:37] LABS: ALBUMIN 2.4 G/DL (3.4-5.0); ANION GAP 18 (8-16); BLOOD UREA NITROGEN 70 MG/DL (7-18); BUN/CREATININE RATIO 20.1 (5.4-32.0); CALCIUM 8.2 MG/DL (8.5-10.1); CHLORIDE 116 MMOL/L (99-107); CREATININE 3.48 MG/DL (0.60-1.10); GLUCOSE 125 MG/DL (70-104); POTASSIUM 3.6 MMOL/L (3.5-5.1); SODIUM 147 MMOL/L (135-145); eGFR 17 ML/MIN
[2021-02-10 07:40] LABS: TOTAL CARBON DIOXIDE 13.2 MMOL/L (24-32)
--- NOTE | 2021-02-10 09:00 | NUR ---
PT UNCOOPERATIVE AND RESISTIVE TO IV PLACEMENT. DR GARCIA CALLED AND INFORMED OF PT IV STATUS. WILL CALL FAMILY AND SALES OPERATIONS ASSOCIATE IF REQUIRED TO ADDRESS IF PT TO BE COMFORT MEASURES OR TO RECEIVE IV MEDS
--- NOTE | 2021-02-10 11:30 | NUR ---
PTS GRAND DAUGHTER POA HERE AT BEDSIDE WITH PT, IV ATTEMPT IN PROCESS.
--- NOTE | 2021-02-10 14:53 | NUR ---
PIV attempted. Patient unalbe to tolerate and moved arm in a swinging motion that was blocked by EMT.
[2021-02-10] MEDS ORDERED: LORazepam 2 mg/ml vial IM ONE (14:55)
--- NOTE | 2021-02-10 15:00 | NUR ---
SPOKE WITH DR. GARCIA UNABLE TO PLACE IV PT WITH AGGRESSIVE BEHAVIOR. RECEIVED VO GO ADMINISTER 2MG ATIVAN IM X 1 NOW.
--- NOTE | 2021-02-10 16:00 | NUR ---
GAVE REPORT FRANCISCO WAGNER. RN AWARE PT WITH PENDING MEDS PT WITHOUT IV. PT WAS RECENTLY MEDICATED FOR AGITATION AND PLACEMENT TO BE REATTEMPTED AFTER MED TAKES AFFECT.
--- NOTE | 2021-02-10 17:09 | NUR ---
PAGER ID: [phone] MESSAGE: [phone]: Angie Holden: Patient is punching nurses, and pulled out all ivs in ER. Patient needs restraints to start new IV
[2021-02-10] MEDS ORDERED: haloperidol lactate 5mg/ml inj IM ONE (17:25)
[2021-02-10] MEDS: sodium bicarbonate (8.4%) inj. 150 MEQ in dextrose 5%-water 1,000 ML IV SCH ×2 (19:42→19:55)
[2021-02-10] MEDS: enoxaparin 30mg/0.3ml syringe SQ SCH ×2 (19:46→20:00)
[2021-02-10] MEDS: dexamethasone inj 4 MG in dextrose 5%-water 100 ML IV SCH ×2 (19:51→20:00)
[2021-02-10] MEDS: docusate sod 100mg capsule PO SCH (20:00)
[2021-02-10] MEDS: pantoprazole 40mg Tablet.DR PO SCH (20:00)
[2021-02-10 22:00] VITALS: BP 136/87
--- NOTE | 2021-02-10 23:55 | NUR ---
Informed Dr. Hansen HR 120-130' new afib.new order given
[2021-02-11] VITALS (8 sets, daily range): BP systolic 121–171; BP diastolic 44–88
[2021-02-11] MEDS ORDERED: diltiazem 30mg tablet PO PRN
--- NOTE | 2021-02-11 00:30 | NUR ---
pt refused to take his cardizem.Dr. Hansen here,advised to try again.
[2021-02-11] MEDS: docusate sod 100mg capsule PO SCH ×2 (08:00→20:00)
[2021-02-11] MEDS: ferrous sulfate 325mg tablet PO SCH (08:00)
[2021-02-11] MEDS: pantoprazole 40mg Tablet.DR PO SCH ×2 (08:00→21:21)
[2021-02-11] MEDS: sodium bicarbonate (8.4%) inj. 150 MEQ in dextrose 5%-water 1,000 ML IV SCH (08:22)
[2021-02-11] MEDS: dexamethasone inj 4 MG in dextrose 5%-water 100 ML IV SCH ×2 (08:22→21:18)
[2021-02-11] MEDS: enoxaparin 30mg/0.3ml syringe SQ SCH ×2 (08:23→21:19)
[2021-02-11 09:42] LABS: BASOPHILS % (AUTO) 0.1 % (0-1); EOSINOPHILS % (AUTO) 0 % (0-6); HEMATOCRIT 25.1 % (42.0-52.0); HEMOGLOBIN 8.6 g/dl (14.0-17.9); LYMPHOCYTES # (AUTO) 0.5 X10'3 (1.1-4.8); MEAN CORPUSCULAR HEMOGLOBIN 32.4 PG (27.0-31.0); MEAN CORPUSCULAR HGB CONC 34.3 g/dL (33.0-36.5); MEAN CORPUSCULAR VOLUME 94.5 FL (78-98); MEAN PLATELET VOLUME 8.9 FL (7.4-10.4); MONOCYTES # (AUTO) 0.3 X10'3 (0-0.9); MONOCYTES % (AUTO) 2.2 % (2-12); NEUTROPHILS # (AUTO) 11.6 X10'3 (1.8-7.7); NEUTROPHILS % (AUTO) 93.7 % (42-75); PLATELET COUNT 209 X10'3 (140-440); RED BLOOD COUNT 2.66 X10'6 (4.70-6.10); RED CELL DISTRIBUTION WIDTH 16.1 % (11.5-14.5); WHITE BLOOD COUNT 12.4 X10'3 (4.5-11.0)
[2021-02-11 09:50] LABS: ALBUMIN 2.2 G/DL (3.4-5.0); ANION GAP 12 (8-16); BLOOD UREA NITROGEN 68 MG/DL (7-18); BUN/CREATININE RATIO 20.7 (5.4-32.0); CALCIUM 8.1 MG/DL (8.5-10.1); CHLORIDE 114 MMOL/L (99-107); CREATININE 3.29 MG/DL (0.60-1.10); GLUCOSE 159 MG/DL (70-104); POTASSIUM 3.9 MMOL/L (3.5-5.1); SODIUM 149 MMOL/L (135-145); TOTAL CARBON DIOXIDE 22.6 MMOL/L (24-32); eGFR 18 ML/MIN
--- NOTE | 2021-02-11 11:56 | NUR ---
PAGER ID: [phone] MESSAGE: [phone] Deshawn Holden: Family would like to discuss making patient comfort care. (Daughter) Danika [phone]
[2021-02-11] MEDS: dextrose 5%-water 1,000 ML IV SCH ×2 (15:25→21:21)
[2021-02-11] MEDS ORDERED: ALBUTEROL INHALER 1 PUFF/90 MCG INHALER IH PRN (21:05)
[2021-02-12 02:10] VITALS: BP 122/99
[2021-02-12 06:30] VITALS: BP 110/60
[2021-02-12] MEDS: dexamethasone inj 4 MG in dextrose 5%-water 100 ML IV SCH (07:22)
[2021-02-12] MEDS: docusate sod 100mg capsule PO SCH ×2 (07:23→19:42)
[2021-02-12] MEDS: enoxaparin 30mg/0.3ml syringe SQ SCH (07:23)
--- NOTE | 2021-02-12 07:30 | NUR ---
PATIENT REFUSED TO OPEN HIS MOUTH FOR PO MEDS.
[2021-02-12] MEDS: pantoprazole 40mg Tablet.DR PO SCH (07:33)
[2021-02-12] MEDS: ferrous sulfate 325mg tablet PO SCH (07:33)
--- NOTE | 2021-02-12 09:10 | NUR ---
PAGER ID: [phone] MESSAGE: [phone] Navin Deshawn Daughter & granddaughter are available to talk at 3pm today
[2021-02-12 09:46] LABS: BASOPHILS % (AUTO) 0 % (0-1); EOSINOPHILS % (AUTO) 0 % (0-6); HEMATOCRIT 26.2 % (42.0-52.0); LYMPHOCYTES # (AUTO) 0.4 X10'3 (1.1-4.8); LYMPHOCYTES % (AUTO) 2.5 % (21-51); MEAN CORPUSCULAR HEMOGLOBIN 31.9 PG (27.0-31.0); MEAN CORPUSCULAR HGB CONC 34.5 g/dL (33.0-36.5); MEAN CORPUSCULAR VOLUME 92.6 FL (78-98); MEAN PLATELET VOLUME 8.6 FL (7.4-10.4); MONOCYTES # (AUTO) 0.4 X10'3 (0-0.9); MONOCYTES % (AUTO) 2.5 % (2-12); NEUTROPHILS # (AUTO) 15.8 X10'3 (1.8-7.7); PLATELET COUNT 174 X10'3 (140-440); RED BLOOD COUNT 2.83 X10'6 (4.70-6.10); RED CELL DISTRIBUTION WIDTH 15.7 % (11.5-14.5); WHITE BLOOD COUNT 16.6 X10'3 (4.5-11.0)
[2021-02-12 10:03] LABS: ALBUMIN 2.3 G/DL (3.4-5.0); BLOOD UREA NITROGEN 70 MG/DL (7-18); BUN/CREATININE RATIO 21.9 (5.4-32.0); CALCIUM 8.1 MG/DL (8.5-10.1); CHLORIDE 115 MMOL/L (99-107); CREATININE 3.19 MG/DL (0.60-1.10); GLUCOSE 137 MG/DL (70-104); POTASSIUM 3.7 MMOL/L (3.5-5.1); TOTAL CARBON DIOXIDE 27.5 MMOL/L (24-32); eGFR 19 ML/MIN
[2021-02-12 10:17] LABS: ANION GAP 10 (8-16); SODIUM 152 MMOL/L (135-145)
--- NOTE | 2021-02-12 10:54 | NUR ---
PAGER ID: [phone] MESSAGE: [phone] Juaquin Holden: granddaughter (POA) Alexandre Covert [phone] thanks!
[2021-02-12 10:57] VITALS: BP 185/78
--- NOTE | 2021-02-12 12:22 | NUR ---
PAGER ID: [phone] MESSAGE: [phone] Juaquin Holden: restraint order needs to be renewed. thank you.
--- NOTE | 2021-02-12 14:23 | NUR ---
Page sent to RT.... Juaquin Holden [id number]: please call regarding this patient. thank you!
--- NOTE | 2021-02-12 15:40 | NUR ---
PAGER ID: [phone] MESSAGE: [phone] Juaquin Holden: daughter Danika [phone], granddaughter Alexandre [phone]. Either number is okay to call. they have been calling to speak with you about this patient as planned. thanks! [phone]
--- NOTE | 2021-02-12 16:15 | NUR ---
Initial: Pt admit DX COVID-19, MAG, and ALOC w/ hx dementia per EMR. Placed on heart healthy diet AOx1/confused refusing all meals past 2 days in restraints w/ sitter in place uncooperative for meds per EMR. Serum Na 152 this AM receiving D5 at 70ml/hr providing 286kcals/day. RD d/w RN regarding TERRITORY OUTSIDE SALES MANAGER BSS vs NG nutrition needs given ALOC status and current inadequate meals/meds intake. RN reports pending family meeting this afternoon regarding code status w/ potential for comfort measures. TF recs below in case to remain DNR and within plan of care. LBM 02/11. Will continue to monitor for nutrition intervention needs this admit. Rec: 1. Consider TERRITORY OUTSIDE SALES MANAGER BSS vs NPO diet given ALOC, uncooperative w/ meds, sitter, and restraints in place per EMR 2. Consider NG for nutrition/meds IF within plan of care this admit; IF TF Jevity 1.2 at 76ml/hr goal would provide 1824ml volume/day, 2189kcals, 1477ml water, and 101g protein. 3. routine bowel care 4. scaled wt this admit; subsequent weekly wts 5. monitor for changes in code status Addendum: 02/12/21 at [address] Amended: Links added.
[2021-02-12] MEDS: dextrose 5%-water 1,000 ML IV SCH (16:42)
--- NOTE | 2021-02-12 16:47 | NUR ---
PAGER ID: [phone] MESSAGE: [phone] Juaquin Holden: BP 175/102. HR 90. any new orders? thanks! [phone]
[2021-02-12] MEDS ORDERED: haloperidol lactate 5mg/ml inj IM PRN (17:25)
[2021-02-12] MEDS: LORazepam 2 mg/ml vial IV PRN ×2 (17:37→23:08)
[2021-02-12 18:00] VITALS: BP 175/102
--- NOTE | 2021-02-12 18:02 | NUR ---
Spoke with nursing supervisor roller shop who approved visitation of daughter and . They are currently on their way to see him quickly.
--- NOTE | 2021-02-12 18:37 | NUR ---
Problems reprioritized. Patient report given, questions answered & plan of care reviewed with FRANCISCO Riggs.
[2021-02-12 22:00] VITALS: BP 176/89
[2021-02-13] MEDS: morphine 2 MG/ML inj. syringe IV PRN ×2 (02:33→23:19)
[2021-02-13] MEDS: LORazepam 2 mg/ml vial IV PRN ×4 (04:07→15:26)
--- NOTE | 2021-02-13 07:16 | NUR ---
Patient in room ORTHO 4011. I have received report from FRANCISCO Riggs and had the opportunity to ask questions and assume patient care.
[2021-02-13] MEDS: docusate sod 100mg capsule PO SCH ×2 (07:47→18:51)
[2021-02-13] MEDS: ferrous sulfate 325mg tablet PO SCH (07:48)
[2021-02-13] MEDS: morphine 10mg/0.5ml (conc. morphine) oral syringe PO PRN ×4 (09:21→16:53)
--- NOTE | 2021-02-13 09:52 | NUR ---
Noted pt with a low Aaron of 12. Per WOC notes pt with skin tear to right forearm and small stage II PU along linear DTI to right posterior thigh. No nutrition intervention to be implemented at this time as pt DNR with comfort care. Diet order has been discontinued. LB 02/12. Will continue to follow per LOS. Recommendations: 1) Bowel care per comfort care measures Addendum: 02/13/21 at [address] Amended: Links added.
[2021-02-13 10:00] VITALS: BP 141/80
--- NOTE | 2021-02-13 18:10 | NUR ---
Problems reprioritized. Patient report given, questions answered & plan of care reviewed with FRANCISCO Jang.
--- NOTE | 2021-02-13 21:52 | NUR ---
daughter Alexandre called for update. no changes. put her number at the bedside. encouraged her to call if she is ever wondering his status.
[2021-02-13 22:00] VITALS: BP 110/59
--- NOTE | 2021-02-13 22:04 | NUR ---
reported to FRANCISCO De La Cruz. noted pt's VSS and recent call from Alexandre.
--- NOTE | 2021-02-13 22:10 | NUR ---
Patient in room ORTHO 4011. I have received report from Laine SINGH and had the opportunity to ask questions and assume patient care.
--- NOTE | 2021-02-14 00:27 | NUR ---
I have reviewed and agree with all interventions, and assessments documented by previous RN (Laine). Will continue to monitor pt with priority on enhancing comfort.
[2021-02-14] MEDS: LORazepam 2 mg/ml vial IV PRN (03:05)
[2021-02-14 04:00] VITALS: BP 93/46
--- NOTE | 2021-02-14 06:32 | NUR ---
Problems reprioritized. Patient report given, questions answered & plan of care reviewed with Collette SINGH.
--- NOTE | 2021-02-14 06:33 | NUR ---
Patient in room ORTHO 4011. I have received report from Dorothy SINGH and had the opportunity to ask questions and assume patient care.
[2021-02-14] MEDS: ferrous sulfate 325mg tablet PO SCH (08:00)
[2021-02-14] MEDS: docusate sod 100mg capsule PO SCH ×2 (08:00→20:00)
[2021-02-14] MEDS: morphine 2 MG/ML inj. syringe IV PRN (09:35)
[2021-02-14 10:00] VITALS: BP 89/47
--- NOTE | 2021-02-14 12:06 | NUR ---
Tele order d/c'd, removed tele box and leads from pt
[2021-02-14 14:28] VITALS: BP 86/38
--- NOTE | 2021-02-14 18:31 | NUR ---
Problems reprioritized. Patient report given, questions answered & plan of care reviewed with Gabriella SINGH.
[2021-02-15] MEDS: morphine 2 MG/ML inj. syringe IV PRN (03:15)
[2021-02-15 06:00] VITALS: BP 111/52
--- NOTE | 2021-02-15 06:27 | NUR ---
Patient in room ORTHO 4011. I have received report from Gabriella SINGH and had the opportunity to ask questions and assume patient care.
--- NOTE | 2021-02-15 06:57 | NUR ---
Problems reprioritized. Patient report given, questions answered & plan of care reviewed with JAROCHO SINGH.
[2021-02-15] MEDS: docusate sod 100mg capsule PO SCH ×2 (08:00→20:00)
[2021-02-15] MEDS: ferrous sulfate 325mg tablet PO SCH (08:00)
[2021-02-15 23:46] VITALS: BP 86/40
--- NOTE | 2021-02-16 00:40 | NUR ---
spoke to Alexandre Marie with updates. Pt resting comfortably with eyes closed.
[2021-02-16] MEDS: docusate sod 100mg capsule PO SCH (08:00)
[2021-02-16] MEDS: ferrous sulfate 325mg tablet PO SCH (08:00)
[2021-02-16 11:30] VITALS: BP 78/31
--- NOTE | 2021-02-16 17:45 | NUR ---
RN IS TO DOCUMENT YES TO ALL APPLICABLE AREAS Pronouncement of : 1. Time Physician Notified: 1709 2. Date of :02/16/2021 3. Time of :170 4. DNR/Withdraw life support documented:YES 5. Monitor strip has been placed on chart:YES 6. Assessment process is of one-minute duration and includes following criteria: a) Patient is unresponsive to all stimuli:YES b) Pupils fixed and non-reactive:YES c) Auscultation of precordium reveals absence of heart tones:YES d) Auscultation of lungs reveals absence of breath sounds:YES e) Absence of blood pressure / all vital signs:YES f) QRS complexes are not present on monitor / EKG strip:ASYSTOLE g) Pacer spikes without capture: NA 4. Comments: COMFORT CARE PATIENT, FAMILY NOTIFIED: ASHLEY SANCHEZT, DONOR NETWORK CALLED
--- NOTE | 2021-02-16 17:48 | NUR ---
PATIENT WITH TIME OF AT 1706. FAMILY NOTIFIED, DR GARCIA NOTIFIED, DULCE CALLED, DONOR NETWORK NOTIFIED, PT NOT A CANDIDATE. THEY WILL BE RUNNING LATE DO TO 6 PICK UPS BEFORE OUR PATIENT. PATIENT READY FOR BUILDING MAINTENANCE MECHANIC WHEN THEY ARE READY.
--- NOTE | 2021-02-16 21:16 | NUR ---
MARLA AND DARIA HERE AT 2009 TO GIS DATABASE ADMINISTRATOR PATIENT AND TRANSPORT TO THE MORTUARY. EXPIRATION MEMORANDUM SIGNED AND COPIES OF FACE SHEET AND MEMORANDOM GIVEN TO HIM. PATIENT'S WATCH PLACED IN BAGGIE WITH LABEL ON IT, I SPOKE TO ASHLEY PONCE ABOUT DISPOSITION OF THE WATCH FOR HER. HER AJ CONTRACTS WITH OUR ENGINEERING DEPT. SO ROCKY FROM ENGINEERING CAME UP AND GOT THE WATCH TO TAKE TO THE ENGINEERING OFFICE. AJ WILL PICK IT UP FROM THERE. NO OTHER BELONGINGS KEPT ASHLEY ONLY WANTED THE WATCH. DENTURES AND BLANKET DISPOSED OF GARY DID NOT WANT TO TAKE THEM EITHER.
--- NOTE | 2021-02-17 15:50 | NUR ---
okayed with daughter Danika okayed to throw dentures away
== END 2021-02-16 20:10 | DRG 177 ==
LOC: ER 10:14 → ED HOLD 14:39 → ORTHO 4S 02-10 16:40
PROVIDERS: ADMIT Family Medicine; ATTEND Family Medicine
DX: U07.1 COVID-19 (principal); G93.41 Metabolic encephalopathy; J12.82 Pneumonia due to coronavirus disease 2019; J96.01 Acute respiratory failure with hypoxia; N17.0 Acute kidney failure with tubular necrosis; E87.2 Acidosis; E87.0 Hyperosmolality and hypernatremia; D64.9 Anemia, unspecified; Z66 Do not resuscitate; N18.9 Chronic kidney disease, unspecified; F03.90 Unspecified dementia, unspecified severity, without behavioral disturbance, psychotic disturbance, mood disturbance, and anxiety; Z51.5 Encounter for palliative care; Z78.1 Physical restraint status; Z80.3 Family history of malignant neoplasm of breast; Z85.46 Personal history of malignant neoplasm of prostate; Z80.1 Family history of malignant neoplasm of trachea, bronchus and lung; Z80.8 Family history of malignant neoplasm of other organs or systems
CPT/HCPCS: 36415; 70450; 71045; 76700; 80048; 80076; 81001; 83605; 83690; 85025; 87081; 87635; 97112; 97163; 97530; 97535; 99285; C9803; G0378; J1100; J1630; J1650; J2060; J2270; J7030; J7060; J7070